=== PATIENT | male | born 1965 | race Two or more races ===

== ENCOUNTER 2020-02-09 22:16 | Inpatient (IN) | payer MEDICARE, MEDICAID ==
[~2020-02-09] VITALS: Ht 162.6 cm; Wt 71.1 kg
[2020-02-09] MEDS ORDERED: PHOSLOC PO (22:50)
[2020-02-09] MEDS ORDERED: FOLI0.8T2 PO (22:50)
[2020-02-09] MEDS ORDERED: RISP1TAB27 PO (22:50)
[2020-02-09] MEDS ORDERED: HYDR-2924 PO (22:50)
[2020-02-09] MEDS ORDERED: INSU100V SQ (22:50)
[2020-02-09] MEDS ORDERED: ATOR40TA28 PO (22:50)
[2020-02-09] MEDS ORDERED: B CO1CAP6 PO (22:50)
[2020-02-09] MEDS ORDERED: PROP40TA7 PO (22:50)
[2020-02-09] MEDS ORDERED: ASPI-728 PO (22:50)
[2020-02-09] MEDS ORDERED: LISI-662 PO (22:50)
[2020-02-09] MEDS ORDERED: DOXA2TAB PO (22:50)
[2020-02-09] MEDS ORDERED: INSLAN SQ (22:50)
[2020-02-09] MEDS ORDERED: AMLO-258 PO (22:50)
[2020-02-09] MEDS ORDERED: OMEP20 PO (22:50)
[2020-02-09 22:57] LABS: ABG METHEMOGLOBIN 0.3 % (0.0-1.5); SOURCE, BLOOD GAS ARTERIAL; TEMPERATURE, FAHRENHEIT, BG 98.6 FAHREN (96.0-98.6)
[2020-02-09 23:00] LABS: ABG A-A DIFF O2 62.5 mmHg (10-20.0); ABG BASE EXCESS 11.3 mmol/L (-2.0-3.0); ABG HCO3 34.1 mmol/L (22.0-26.0); ABG OXYGEN SATURATION 99.8 % (95.0-98.0); ABG OXYHEMOGLOBIN 97.5 % (94.0-100.0); ABG PCO2 40 mmHg (35-45); ABG PH 7.546 (7.35-7.450); PO2, ARTERIAL BG 176.9 mmHg (84.0-92.0)
[2020-02-09 23:01] LABS: SITE, BLOOD GAS RT BRACHIAL
[2020-02-09 23:02] LABS: O2 DEVICE,BLOOD GAS CANNULA (ROOM AIR)
[2020-02-09] MEDS ORDERED: CefTRIAXone 1 GM/DEXTROSE 50 ML IV ONE (23:30)
[2020-02-09] MEDS ORDERED: SODIUM CHLORIDE 0.9% 1,000 ML IV ONE (23:30)
[2020-02-09] MEDS: OXYGEN THERAPY IH SCH (23:42)
[2020-02-10] VITALS (19 sets, daily range): BP systolic 113–189; BP diastolic 42–69
[2020-02-10 00:04] LABS: BASOPHILS % (AUTO) 0.5 % (0.0-2.0); EOSINOPHILS % (AUTO) 0.5 % (1.0-6.0); LYMPHOCYTES # (AUTO) 0.2 K/uL (1.0-4.8); LYMPHOCYTES % (AUTO) 12.7 % (22.0-44.0); MEAN CORPUSCULAR HEMOGLOBIN 33.3 pg (26.0-34.0); MEAN CORPUSCULAR VOLUME 95 fL (80-100); MONOCYTES # (AUTO) 0.1 K/uL (0.1-1.0); MONOCYTES % (AUTO) 6.1 % (2.0-9.0); NEUTROPHILS # (AUTO) 1.1 K/uL (1.8-7.7); NEUTROPHILS % (AUTO) 80.2 % (40.0-70.0); RED BLOOD CELL COUNT(AUTO) 1.99 MIL/uL (4.50-5.90); RED CELL DISTRIBUTION WIDTH 16.6 % (11.5-14.5)
[2020-02-10 00:09] LABS: CREATININE 4.87 mg/dL (0.60-1.30); POTASSIUM 3.5 mmol/L (3.5-5.1)
[2020-02-10 00:10] LABS: CALCIUM, TOTAL 8.1 mg/dL (8.8-10.5)
[2020-02-10] MEDS ORDERED: ONDANSETRON HCL 4 MG/2 ML VIAL IVP PRN (00:15)
[2020-02-10] MEDS ORDERED: ACETAMINOPHEN 325 MG TABLET PO PRN (00:15)
[2020-02-10] MEDS ORDERED: 0.9% SODIUM CHLORIDE 10 ML SYRINGE IVP PRN (00:15)
[2020-02-10 00:17] LABS: TROPONIN I 0.71 ng/mL (0.00-0.05)
[2020-02-10 00:20] LABS: D-DIMER 5.11 mg/L FEU (0.00-0.50); INR 1.5 (0.9-1.1); PROTHROMBIN TIME 15.4 SEC (9.4-11.6)
[2020-02-10 00:49] LABS: ALBUMIN 2.3 g/dL (3.4-5.0); BILIRUBIN,TOTAL 0.7 mg/dL (0.1-1.0); C-REACTIVE PROTEIN QUANT 10.07 mg/dL (0.00-0.30); MAGNESIUM 1.9 mg/dL (1.80-2.40); TOTAL PROTEIN, SERUM 7.7 g/dL (6.4-8.2)
[2020-02-10 00:58] LABS: HEMOGLOBIN 6.6 g/dL (13.5-17.5)
[2020-02-10 01:33] LABS: PLATELET COUNT (AUTO) 33 K/uL (150-450)
[2020-02-10 02:38] LABS: INFLUENZA TYPE A NEGATIVE FOR TYPE A (NEGATIVE); INFLUENZA TYPE B NEGATIVE FOR TYPE B (NEGATIVE)
[2020-02-10] MEDS ORDERED: DiphenhydrAMINE HCL 25 MG CAPSULE PO ONE (04:30)
[2020-02-10] MEDS ORDERED: ACETAMINOPHEN 500 MG TABLET PO ONE (04:30)
[2020-02-10] MEDS ORDERED: AZITHROMYCIN 500 MG/NS 250 ML IV ONE (04:30)
[2020-02-10] MEDS ORDERED: DEXAMETHASONE SOD PHOS 4 MG/ML 5 ML VIAL IVP ONE (04:30)
[2020-02-10] MEDS: OXYGEN THERAPY IH SCH ×2 (08:44→21:50)
[2020-02-10 09:31] LABS: BASOPHILS % (AUTO) 0.7 % (0.0-2.0); EOSINOPHILS % (AUTO) 0.2 % (1.0-6.0); HEMATOCRIT 25.7 % (41-53); HEMOGLOBIN 8.6 g/dL (13.5-17.5); LYMPHOCYTES # (AUTO) 0.1 K/uL (1.0-4.8); MEAN CORPUSCULAR HEMOGLOBIN 32.1 pg (26.0-34.0); MEAN CORPUSCULAR HGB CONC 33.3 G/dL (31.0-37.0); MEAN CORPUSCULAR VOLUME 96 fL (80-100); MONOCYTES % (AUTO) 2.4 % (2.0-9.0); NEUTROPHILS # (AUTO) 1.5 K/uL (1.8-7.7); PLATELET COUNT (AUTO) 35 K/uL (150-450); RED BLOOD CELL COUNT(AUTO) 2.67 MIL/uL (4.50-5.90); RED CELL DISTRIBUTION WIDTH 17.2 % (11.5-14.5)
[2020-02-10 09:33] LABS: NEUTROPHILS % (AUTO) 88.7 % (40.0-70.0)
[2020-02-10 09:42] LABS: GLUCOMETER DEV NAME(LOC) AHU.; GLUCOSE,POINT OF CARE 123 MG/DL (70-110)
[2020-02-10 10:19] LABS: ALBUMIN 2.4 g/dL (3.4-5.0); BILIRUBIN,TOTAL 0.7 mg/dL (0.1-1.0); C-REACTIVE PROTEIN QUANT 11.93 mg/dL (0.00-0.30); CALCIUM, TOTAL 8.1 mg/dL (8.8-10.5); CREATININE 5.8 mg/dL (0.60-1.30); POTASSIUM 4.2 mmol/L (3.5-5.1); TOTAL PROTEIN, SERUM 8.1 g/dL (6.4-8.2)
[2020-02-10] MEDS ORDERED: [UNRECOGNIZED DRUG - OTHER] PO SCH (10:45)
[2020-02-10] MEDS: CALCIUM ACETATE 667 MG CAPSULE PO SCH (11:29)
[2020-02-10] MEDS: PROPRANOLOL HCL 40 MG TABLET PO SCH ×2 (11:29→22:07)
[2020-02-10] MEDS: AmLODIPine BESYLATE 10 MG TABLET PO SCH (11:29)
[2020-02-10] MEDS: OMEPRAZOLE 20 MG CAPSULE PO SCH (11:30)
[2020-02-10] MEDS: ASPIRIN 81 MG CHEWABLE TABLET PO SCH (11:30)
[2020-02-10] MEDS: VITAMIN B COMP/VIT C/FOLIC ACID CAPSULE PO SCH (11:30)
[2020-02-10] MEDS: RisperiDONE 1 MG TABLET PO SCH ×2 (11:31→22:08)
[2020-02-10] MEDS: LISINOPRIL 20 MG TABLET PO SCH ×2 (11:31→22:08)
[2020-02-10] MEDS: ATORVASTATIN CALCIUM 40 MG TABLET PO SCH (11:33)
[2020-02-10] MEDS: DOXAZOSIN MESYLATE 2 MG TABLET PO SCH (12:36)
[2020-02-10] MEDS: HydrALAZINE HCL 50 MG TABLET PO SCH (12:36)
[2020-02-10 12:46] LABS: GLUCOMETER DEV NAME(LOC) AHU.; GLUCOSE,POINT OF CARE 223 MG/DL (70-110)
[2020-02-10] MEDS ORDERED: DEXTROSE 50%-WATER 25 GM/50 ML SYRINGE IVP PRN (16:00)
[2020-02-10 16:01] LABS: ABG A-A DIFF O2 67.7 mmHg (10-20.0); ABG BASE EXCESS 2.9 mmol/L (-2.0-3.0); ABG CARBOXYHEMOGLOBIN 0.6 % (0.0-1.5); ABG HCO3 26.9 mmol/L (22.0-26.0); ABG METHEMOGLOBIN 0.3 % (0.0-1.5); ABG OXYGEN CONTENT 16.4 mL/dL (15.0-23.0); ABG OXYGEN SATURATION 95.3 % (95.0-98.0); ABG OXYHEMOGLOBIN 94.4 % (94.0-100.0); ABG PCO2 39 mmHg (35-45); ABG PH 7.459 (7.35-7.450); ABG TOTAL HEMOGLOBIN 12.3 G/dL (12.0-18.0); PO2, ARTERIAL BG 86.5 mmHg (84.0-92.0); SITE, BLOOD GAS RT RADIAL; SOURCE, BLOOD GAS ARTERIAL; TEMPERATURE, FAHRENHEIT, BG 98.6 FAHREN (96.0-98.6)
[2020-02-10 16:02] LABS: O2 DEVICE,BLOOD GAS CANNULA (ROOM AIR)
[2020-02-10 18:05] LABS: GLUCOMETER DEV NAME(LOC) AHU.; GLUCOSE,POINT OF CARE 232 MG/DL (70-110)
[2020-02-10] MEDS: INSULIN LISPRO 100 UNITS/ML SQ PRN (18:40)
[2020-02-10] MEDS ORDERED: VITAMIN B COMP/VIT C/FOLIC ACID CAPSULE PO SCH (19:15)
[2020-02-10 19:59] LABS: ABG A-A DIFF O2 45.2 mmHg (10-20.0); ABG BASE EXCESS 3.8 mmol/L (-2.0-3.0); ABG CARBOXYHEMOGLOBIN 0.3 % (0.0-1.5); ABG HCO3 27.6 mmol/L (22.0-26.0); ABG METHEMOGLOBIN 0.3 % (0.0-1.5); ABG OXYGEN CONTENT 11.7 mL/dL (15.0-23.0); ABG OXYGEN SATURATION 88.8 % (95.0-98.0); ABG OXYHEMOGLOBIN 88.3 % (94.0-100.0); ABG PCO2 38 mmHg (35-45); ABG PH 7.473 (7.35-7.450); ABG TOTAL HEMOGLOBIN 9.4 G/dL (12.0-18.0); PO2, ARTERIAL BG 58.7 mmHg (84.0-92.0); SOURCE, BLOOD GAS ARTERIAL; TEMPERATURE, FAHRENHEIT, BG 98.6 FAHREN (96.0-98.6)
[2020-02-10 20:00] LABS: O2 DEVICE,BLOOD GAS ROOM AIR (ROOM AIR); SITE, BLOOD GAS RT RADIAL
[2020-02-10] MEDS: INSULIN GLARGINE,HUM.REC.ANLOG 100 UNITS/ML SQ SCH (22:08)
[2020-02-10 22:11] LABS: GLUCOMETER DEV NAME(LOC) AHU.; GLUCOSE,POINT OF CARE 203 MG/DL (70-110)
[2020-02-11] VITALS (7 sets, daily range): BP systolic 116–145; BP diastolic 56–71
[2020-02-11 05:30] LABS: BASOPHILS % (AUTO) 0.2 % (0.0-2.0); EOSINOPHILS % (AUTO) 0 % (1.0-6.0); HEMATOCRIT 26.7 % (41-53); HEMOGLOBIN 9.3 g/dL (13.5-17.5); LYMPHOCYTES # (AUTO) 0.2 K/uL (1.0-4.8); LYMPHOCYTES % (AUTO) 8.6 % (22.0-44.0); MEAN CORPUSCULAR HEMOGLOBIN 33.3 pg (26.0-34.0); MEAN CORPUSCULAR HGB CONC 34.9 G/dL (31.0-37.0); MEAN CORPUSCULAR VOLUME 95 fL (80-100); MONOCYTES # (AUTO) 0.1 K/uL (0.1-1.0); MONOCYTES % (AUTO) 4.3 % (2.0-9.0); PLATELET COUNT (AUTO) 38 K/uL (150-450); RED BLOOD CELL COUNT(AUTO) 2.81 MIL/uL (4.50-5.90); RED CELL DISTRIBUTION WIDTH 16.9 % (11.5-14.5)
[2020-02-11 06:04] LABS: NEUTROPHILS % (AUTO) 86.9 % (40.0-70.0)
[2020-02-11 06:13] LABS: BILIRUBIN,TOTAL 0.6 mg/dL (0.1-1.0); C-REACTIVE PROTEIN QUANT 8.55 mg/dL (0.00-0.30); CALCIUM, TOTAL 7.7 mg/dL (8.8-10.5); CREATININE 6.88 mg/dL (0.60-1.30); MAGNESIUM 2.2 mg/dL (1.80-2.40); POTASSIUM 4.3 mmol/L (3.5-5.1); TOTAL PROTEIN, SERUM 7.1 g/dL (6.4-8.2)
[2020-02-11 07:01] LABS: GLUCOMETER DEV NAME(LOC) 4E.2; GLUCOSE,POINT OF CARE 138 MG/DL (70-110)
[2020-02-11] MEDS: OXYGEN THERAPY IH SCH ×2 (08:00→14:52)
[2020-02-11] MEDS: CALCIUM ACETATE 667 MG CAPSULE PO SCH ×3 (08:00→18:20)
[2020-02-11 10:45] LABS: ABG A-A DIFF O2 96.7 mmHg (10-20.0); ABG BASE EXCESS 0.3 mmol/L (-2.0-3.0); ABG CARBOXYHEMOGLOBIN 1.1 % (0.0-1.5); ABG HCO3 25.2 mmol/L (22.0-26.0); ABG METHEMOGLOBIN 0.3 % (0.0-1.5); ABG OXYGEN CONTENT 13.4 mL/dL (15.0-23.0); ABG OXYGEN SATURATION 92.5 % (95.0-98.0); ABG OXYHEMOGLOBIN 91.2 % (94.0-100.0); ABG PCO2 29 mmHg (35-45); ABG PH 7.515 (7.35-7.450); ABG TOTAL HEMOGLOBIN 10.4 G/dL (12.0-18.0); PO2, ARTERIAL BG 68.3 mmHg (84.0-92.0); SITE, BLOOD GAS RT RADIAL; SOURCE, BLOOD GAS ARTERIAL; TEMPERATURE, FAHRENHEIT, BG 98.6 FAHREN (96.0-98.6)
[2020-02-11 10:46] LABS: O2 DEVICE,BLOOD GAS CANNULA (ROOM AIR)
[2020-02-11] MEDS ORDERED: ACETAMINOPHEN 325 MG TABLET PO ONE (12:30)
[2020-02-11] MEDS: ASPIRIN 81 MG CHEWABLE TABLET PO SCH (14:18)
[2020-02-11] MEDS: AmLODIPine BESYLATE 10 MG TABLET PO SCH (14:19)
[2020-02-11] MEDS: LISINOPRIL 20 MG TABLET PO SCH ×2 (14:19→20:56)
[2020-02-11] MEDS: EPOETIN ALFA 10,000 UNITS/ML VIAL SQ SCH (14:19)
[2020-02-11] MEDS: ATORVASTATIN CALCIUM 40 MG TABLET PO SCH (14:19)
[2020-02-11] MEDS: INSULIN LISPRO 100 UNITS/ML SQ PRN ×2 (14:21→21:10)
[2020-02-11] MEDS: PROPRANOLOL HCL 40 MG TABLET PO SCH ×2 (14:50→15:58)
[2020-02-11] MEDS: VITAMIN B COMP/VIT C/FOLIC ACID CAPSULE PO SCH (14:50)
[2020-02-11] MEDS: DOXAZOSIN MESYLATE 2 MG TABLET PO SCH (14:51)
[2020-02-11] MEDS: HydrALAZINE HCL 50 MG TABLET PO SCH ×2 (14:51→14:58)
[2020-02-11] MEDS: RisperiDONE 1 MG TABLET PO SCH ×2 (14:51→20:58)
[2020-02-11] MEDS: OMEPRAZOLE 20 MG CAPSULE PO SCH (14:53)
[2020-02-11 17:27] LABS: GLUCOMETER DEV NAME(LOC) 5N.3; GLUCOSE,POINT OF CARE 100 MG/DL (70-110)
[2020-02-11] MEDS: ACETAMINOPHEN 325 MG TABLET PO PRN ×2 (18:20→22:38)
[2020-02-11] MEDS: INSULIN GLARGINE,HUM.REC.ANLOG 100 UNITS/ML SQ SCH (21:13)
[2020-02-12 03:30] VITALS: BP 149/52
[2020-02-12] MEDS: ACETAMINOPHEN 325 MG TABLET PO PRN (06:16)
[2020-02-12 06:48] LABS: BASOPHILS % (AUTO) 0.3 % (0.0-2.0); EOSINOPHILS % (AUTO) 0.3 % (1.0-6.0); HEMATOCRIT 24.5 % (41-53); HEMOGLOBIN 8.3 g/dL (13.5-17.5); LYMPHOCYTES # (AUTO) 0.2 K/uL (1.0-4.8); LYMPHOCYTES % (AUTO) 11.6 % (22.0-44.0); MEAN CORPUSCULAR HGB CONC 33.9 G/dL (31.0-37.0); MEAN CORPUSCULAR VOLUME 95 fL (80-100); MONOCYTES # (AUTO) 0.1 K/uL (0.1-1.0); NEUTROPHILS # (AUTO) 1.8 K/uL (1.8-7.7); NEUTROPHILS % (AUTO) 82.8 % (40.0-70.0); PLATELET COUNT (AUTO) 39 K/uL (150-450); RED CELL DISTRIBUTION WIDTH 16.6 % (11.5-14.5)
[2020-02-12 07:13] LABS: GLUCOMETER DEV NAME(LOC) 5N.3; GLUCOSE,POINT OF CARE 97 MG/DL (70-110)
[2020-02-12 07:13] LABS: GLUCOMETER DEV NAME(LOC) 5N.3; GLUCOSE,POINT OF CARE 167 MG/DL (70-110)
[2020-02-12 07:18] VITALS: BP 137/67
[2020-02-12 08:04] LABS: BILIRUBIN,TOTAL 0.6 mg/dL (0.1-1.0); C-REACTIVE PROTEIN QUANT 7.49 mg/dL (0.00-0.30); CREATININE 5.16 mg/dL (0.60-1.30); TOTAL PROTEIN, SERUM 7.2 g/dL (6.4-8.2)
[2020-02-12 08:37] VITALS: BP 118/64
[2020-02-12] MEDS: AmLODIPine BESYLATE 10 MG TABLET PO SCH (08:39)
[2020-02-12] MEDS: LISINOPRIL 20 MG TABLET PO SCH ×2 (08:39→21:51)
[2020-02-12] MEDS: VITAMIN B COMP/VIT C/FOLIC ACID CAPSULE PO SCH (08:42)
[2020-02-12] MEDS: ATORVASTATIN CALCIUM 40 MG TABLET PO SCH (08:42)
[2020-02-12] MEDS: ASPIRIN 81 MG CHEWABLE TABLET PO SCH (08:42)
[2020-02-12] MEDS: DOXAZOSIN MESYLATE 2 MG TABLET PO SCH (08:42)
[2020-02-12] MEDS: CALCIUM ACETATE 667 MG CAPSULE PO SCH ×2 (08:42→18:00)
[2020-02-12] MEDS: OXYGEN THERAPY IH SCH ×2 (08:42→22:17)
[2020-02-12] MEDS: RisperiDONE 1 MG TABLET PO SCH ×3 (08:43→21:51)
[2020-02-12] MEDS: OMEPRAZOLE 20 MG CAPSULE PO SCH (08:43)
[2020-02-12 11:11] VITALS: BP 130/65
[2020-02-12] MEDS: PROPRANOLOL HCL 40 MG TABLET PO SCH ×2 (11:23→21:51)
[2020-02-12 15:23] VITALS: BP 119/65
[2020-02-12 16:43] LABS: GLUCOMETER DEV NAME(LOC) 5S.2A; GLUCOSE,POINT OF CARE 137 MG/DL (70-110)
[2020-02-12] MEDS: INSULIN LISPRO 100 UNITS/ML SQ PRN ×2 (18:28→22:14)
[2020-02-12 21:14] VITALS: BP 137/82
[2020-02-12] MEDS: INSULIN GLARGINE,HUM.REC.ANLOG 100 UNITS/ML SQ SCH (22:14)
[2020-02-13 04:14] VITALS: BP 134/69
[2020-02-13] MEDS: ACETAMINOPHEN 325 MG TABLET PO PRN (05:48)
[2020-02-13 06:49] LABS: GLUCOMETER DEV NAME(LOC) 5N.3; GLUCOSE,POINT OF CARE 176 MG/DL (70-110)
[2020-02-13 06:49] LABS: GLUCOMETER DEV NAME(LOC) 5N.3; GLUCOSE,POINT OF CARE 101 MG/DL (70-110)
[2020-02-13 07:18] LABS: BASOPHILS % (AUTO) 0.2 % (0.0-2.0); EOSINOPHILS % (AUTO) 1.1 % (1.0-6.0); HEMATOCRIT 22.8 % (41-53); HEMOGLOBIN 7.7 g/dL (13.5-17.5); LYMPHOCYTES # (AUTO) 0.3 K/uL (1.0-4.8); LYMPHOCYTES % (AUTO) 12.7 % (22.0-44.0); MEAN CORPUSCULAR HEMOGLOBIN 31.9 pg (26.0-34.0); MEAN CORPUSCULAR HGB CONC 33.6 G/dL (31.0-37.0); MEAN CORPUSCULAR VOLUME 95 fL (80-100); MONOCYTES # (AUTO) 0.1 K/uL (0.1-1.0); MONOCYTES % (AUTO) 4.3 % (2.0-9.0); NEUTROPHILS # (AUTO) 1.8 K/uL (1.8-7.7); NEUTROPHILS % (AUTO) 81.7 % (40.0-70.0); RED BLOOD CELL COUNT(AUTO) 2.41 MIL/uL (4.50-5.90); RED CELL DISTRIBUTION WIDTH 16.4 % (11.5-14.5)
[2020-02-13] MEDS: OXYGEN THERAPY IH SCH ×2 (08:00→21:17)
[2020-02-13 08:11] LABS: ALBUMIN 2.1 g/dL (3.4-5.0); BILIRUBIN,TOTAL 0.7 mg/dL (0.1-1.0); C-REACTIVE PROTEIN QUANT 7.13 mg/dL (0.00-0.30); CREATININE 7.45 mg/dL (0.60-1.30); POTASSIUM 4.2 mmol/L (3.5-5.1); TOTAL PROTEIN, SERUM 7.5 g/dL (6.4-8.2)
[2020-02-13] MEDS: OMEPRAZOLE 20 MG CAPSULE PO SCH (08:19)
[2020-02-13] MEDS: CALCIUM ACETATE 667 MG CAPSULE PO SCH ×2 (08:19→17:17)
[2020-02-13 08:20] VITALS: BP 131/74
[2020-02-13] MEDS: VITAMIN B COMP/VIT C/FOLIC ACID CAPSULE PO SCH (08:20)
[2020-02-13] MEDS: EPOETIN ALFA 10,000 UNITS/ML VIAL SQ SCH (08:25)
[2020-02-13] MEDS: LISINOPRIL 20 MG TABLET PO SCH ×2 (09:00→21:17)
[2020-02-13] MEDS: HydrALAZINE HCL 50 MG TABLET PO SCH (09:00)
[2020-02-13] MEDS: RisperiDONE 1 MG TABLET PO SCH ×2 (09:00→21:00)
[2020-02-13] MEDS: PROPRANOLOL HCL 40 MG TABLET PO SCH ×2 (09:00→21:17)
[2020-02-13 09:01] LABS: PLATELET COUNT (AUTO) 35 K/uL (150-450)
[2020-02-13 12:03] VITALS: BP 128/78
[2020-02-13] MEDS: INSULIN LISPRO 100 UNITS/ML SQ PRN ×3 (12:38→21:21)
[2020-02-13 14:55] VITALS: BP 132/69
[2020-02-13 16:58] VITALS: BP 140/67
[2020-02-13] MEDS: DOXAZOSIN MESYLATE 2 MG TABLET PO SCH (17:16)
[2020-02-13] MEDS: ATORVASTATIN CALCIUM 40 MG TABLET PO SCH (17:16)
[2020-02-13] MEDS: AmLODIPine BESYLATE 10 MG TABLET PO SCH (17:18)
[2020-02-13] MEDS: ASPIRIN 81 MG CHEWABLE TABLET PO SCH (17:19)
[2020-02-13 17:47] LABS: GLUCOMETER DEV NAME(LOC) 5S.2A; GLUCOSE,POINT OF CARE 166 MG/DL (70-110)
[2020-02-13 17:47] LABS: GLUCOMETER DEV NAME(LOC) 5S.2A; GLUCOSE,POINT OF CARE 198 MG/DL (70-110)
[2020-02-13 20:31] VITALS: BP 142/70
[2020-02-13] MEDS: INSULIN GLARGINE,HUM.REC.ANLOG 100 UNITS/ML SQ SCH (21:20)
[2020-02-14 00:14] VITALS: BP 120/60
[2020-02-14 04:00] VITALS: BP 139/70
[2020-02-14 04:01] LABS: GLUCOMETER DEV NAME(LOC) 5S.2A; GLUCOSE,POINT OF CARE 151 MG/DL (70-110)
[2020-02-14 04:01] LABS: GLUCOMETER DEV NAME(LOC) 5N.3; GLUCOSE,POINT OF CARE 145 MG/DL (70-110)
[2020-02-14 07:23] LABS: BASOPHILS % (AUTO) 0.4 % (0.0-2.0); EOSINOPHILS % (AUTO) 1.9 % (1.0-6.0); HEMATOCRIT 23.4 % (41-53); HEMOGLOBIN 7.7 g/dL (13.5-17.5); LYMPHOCYTES # (AUTO) 0.3 K/uL (1.0-4.8); LYMPHOCYTES % (AUTO) 10.2 % (22.0-44.0); MEAN CORPUSCULAR HEMOGLOBIN 31.5 pg (26.0-34.0); MEAN CORPUSCULAR VOLUME 96 fL (80-100); MONOCYTES # (AUTO) 0.2 K/uL (0.1-1.0); MONOCYTES % (AUTO) 5.5 % (2.0-9.0); NEUTROPHILS # (AUTO) 2.3 K/uL (1.8-7.7); RED BLOOD CELL COUNT(AUTO) 2.45 MIL/uL (4.50-5.90); RED CELL DISTRIBUTION WIDTH 16.3 % (11.5-14.5)
[2020-02-14 08:00] LABS: ALBUMIN 2.1 g/dL (3.4-5.0); BILIRUBIN,TOTAL 0.7 mg/dL (0.1-1.0); C-REACTIVE PROTEIN QUANT 7.53 mg/dL (0.00-0.30); CALCIUM, TOTAL 8.1 mg/dL (8.8-10.5); CREATININE 5.53 mg/dL (0.60-1.30); TOTAL PROTEIN, SERUM 7.6 g/dL (6.4-8.2)
[2020-02-14 08:13] VITALS: BP 140/65
[2020-02-14] MEDS: CALCIUM ACETATE 667 MG CAPSULE PO SCH ×2 (08:21→18:20)
[2020-02-14] MEDS: ATORVASTATIN CALCIUM 40 MG TABLET PO SCH (08:21)
[2020-02-14] MEDS: VITAMIN B COMP/VIT C/FOLIC ACID CAPSULE PO SCH (08:21)
[2020-02-14] MEDS: OMEPRAZOLE 20 MG CAPSULE PO SCH (08:22)
[2020-02-14] MEDS: ASPIRIN 81 MG CHEWABLE TABLET PO SCH (08:22)
[2020-02-14] MEDS: AmLODIPine BESYLATE 10 MG TABLET PO SCH (08:23)
[2020-02-14] MEDS: LISINOPRIL 20 MG TABLET PO SCH ×2 (08:23→20:46)
[2020-02-14] MEDS: PROPRANOLOL HCL 40 MG TABLET PO SCH ×2 (08:24→20:46)
[2020-02-14] MEDS: DOXAZOSIN MESYLATE 2 MG TABLET PO SCH (08:24)
[2020-02-14] MEDS: HydrALAZINE HCL 50 MG TABLET PO SCH (08:24)
[2020-02-14] MEDS: RisperiDONE 1 MG TABLET PO SCH ×2 (08:38→21:00)
[2020-02-14] MEDS: OXYGEN THERAPY IH SCH ×2 (08:38→20:00)
[2020-02-14 08:48] LABS: PLATELET COUNT (AUTO) 37 K/uL (150-450)
[2020-02-14 08:56] LABS: ERYTHROCYTE SEDIMENTATION RATE 130 MM/HR (0-15)
[2020-02-14 11:25] VITALS: BP 136/65
[2020-02-14] MEDS: INSULIN LISPRO 100 UNITS/ML SQ PRN ×3 (11:40→20:50)
[2020-02-14] MEDS: ACETAMINOPHEN 325 MG TABLET PO PRN ×2 (11:53→20:46)
[2020-02-14 15:08] VITALS: BP 122/60
[2020-02-14] MEDS ORDERED: PHENYLEPHRINE/COCOA BUTTER RECTAL SUPPOSITORY PR SCH (15:30)
[2020-02-14] MEDS: PHENYLEPHRINE/COCOA BUTTER RECTAL SUPPOSITORY PR SCH ×2 (16:49→20:47)
[2020-02-14] MEDS: INSULIN GLARGINE,HUM.REC.ANLOG 100 UNITS/ML SQ SCH (20:49)
[2020-02-14 21:27] LABS: GLUCOMETER DEV NAME(LOC) 5S.2A; GLUCOSE,POINT OF CARE 84 MG/DL (70-110)
[2020-02-14 21:27] LABS: GLUCOMETER DEV NAME(LOC) 5S.2A; GLUCOSE,POINT OF CARE 209 MG/DL (70-110)
[2020-02-14 21:28] LABS: GLUCOMETER DEV NAME(LOC) 5S.2A; GLUCOSE,POINT OF CARE 212 MG/DL (70-110)
[2020-02-15] VITALS (7 sets, daily range): BP systolic 131–158; BP diastolic 57–68
[2020-02-15] MEDS: ACETAMINOPHEN 325 MG TABLET PO PRN ×4 (01:40→20:41)
[2020-02-15] MEDS: INSULIN LISPRO 100 UNITS/ML SQ PRN ×3 (06:11→18:00)
[2020-02-15 07:27] LABS: BASOPHILS % (AUTO) 0.4 % (0.0-2.0); EOSINOPHILS % (AUTO) 3.2 % (1.0-6.0); HEMOGLOBIN 7.5 g/dL (13.5-17.5); LYMPHOCYTES # (AUTO) 0.3 K/uL (1.0-4.8); LYMPHOCYTES % (AUTO) 9.4 % (22.0-44.0); MEAN CORPUSCULAR HEMOGLOBIN 30.7 pg (26.0-34.0); MEAN CORPUSCULAR HGB CONC 32.6 G/dL (31.0-37.0); MEAN CORPUSCULAR VOLUME 94 fL (80-100); MONOCYTES # (AUTO) 0.2 K/uL (0.1-1.0); MONOCYTES % (AUTO) 6.5 % (2.0-9.0); NEUTROPHILS # (AUTO) 2.4 K/uL (1.8-7.7); NEUTROPHILS % (AUTO) 80.5 % (40.0-70.0); PLATELET COUNT (AUTO) 45 K/uL (150-450); RED BLOOD CELL COUNT(AUTO) 2.44 MIL/uL (4.50-5.90); RED CELL DISTRIBUTION WIDTH 16.3 % (11.5-14.5)
[2020-02-15] MEDS: OXYGEN THERAPY IH SCH ×2 (08:00→20:42)
[2020-02-15 08:10] LABS: BILIRUBIN,TOTAL 0.7 mg/dL (0.1-1.0); C-REACTIVE PROTEIN QUANT 8.73 mg/dL (0.00-0.30); CREATININE 7.82 mg/dL (0.60-1.30); POTASSIUM 4.1 mmol/L (3.5-5.1); TOTAL PROTEIN, SERUM 7.2 g/dL (6.4-8.2)
[2020-02-15] MEDS: PHENYLEPHRINE/COCOA BUTTER RECTAL SUPPOSITORY PR SCH ×3 (08:10→20:42)
[2020-02-15] MEDS: VITAMIN B COMP/VIT C/FOLIC ACID CAPSULE PO SCH (08:11)
[2020-02-15] MEDS: OMEPRAZOLE 20 MG CAPSULE PO SCH (08:11)
[2020-02-15] MEDS: CALCIUM ACETATE 667 MG CAPSULE PO SCH ×2 (08:11→18:00)
[2020-02-15] MEDS: ATORVASTATIN CALCIUM 40 MG TABLET PO SCH (08:12)
[2020-02-15] MEDS: ASPIRIN 81 MG CHEWABLE TABLET PO SCH (08:12)
[2020-02-15] MEDS: LISINOPRIL 20 MG TABLET PO SCH ×2 (08:18→20:42)
[2020-02-15] MEDS: AmLODIPine BESYLATE 10 MG TABLET PO SCH (08:18)
[2020-02-15] MEDS: RisperiDONE 1 MG TABLET PO SCH ×2 (08:18→20:42)
[2020-02-15] MEDS: DOXAZOSIN MESYLATE 2 MG TABLET PO SCH (08:18)
[2020-02-15] MEDS: PROPRANOLOL HCL 40 MG TABLET PO SCH ×2 (08:18→20:42)
[2020-02-15] MEDS: HydrALAZINE HCL 50 MG TABLET PO SCH (08:19)
[2020-02-15] MEDS: HYDROCODONE/ACETAMINOPHEN 5-325 MG TABLET PO PRN (18:00)
[2020-02-15] MEDS: INSULIN GLARGINE,HUM.REC.ANLOG 100 UNITS/ML SQ SCH (20:44)
[2020-02-15] MEDS ORDERED: SODIUM CHLORIDE 0.9% 100 ML ONE (21:29)
[2020-02-15 21:46] LABS: GLUCOMETER DEV NAME(LOC) 5N.1; GLUCOSE,POINT OF CARE 178 MG/DL (70-110)
[2020-02-15 21:47] LABS: GLUCOMETER DEV NAME(LOC) 5S.2A; GLUCOSE,POINT OF CARE 211 MG/DL (70-110)
[2020-02-15 21:47] LABS: GLUCOMETER DEV NAME(LOC) 5S.2A; GLUCOSE,POINT OF CARE 174 MG/DL (70-110)
[2020-02-15 21:47] LABS: GLUCOMETER DEV NAME(LOC) 5S.2A; GLUCOSE,POINT OF CARE 164 MG/DL (70-110)
[2020-02-16] VITALS (9 sets, daily range): BP systolic 104–158; BP diastolic 50–81
[2020-02-16] MEDS ORDERED: SODIUM CHLORIDE 0.9% 100 ML ONE (02:21)
[2020-02-16] MEDS: ACETAMINOPHEN 325 MG TABLET PO PRN (02:54)
[2020-02-16] MEDS: INSULIN LISPRO 100 UNITS/ML SQ PRN ×3 (06:35→21:20)
[2020-02-16 06:52] LABS: GLUCOMETER DEV NAME(LOC) 5S.1; GLUCOSE,POINT OF CARE 184 MG/DL (70-110)
[2020-02-16 08:10] LABS: GLUCOMETER DEV NAME(LOC) 5N.3; GLUCOSE,POINT OF CARE 153 MG/DL (70-110)
[2020-02-16 08:24] LABS: BASOPHILS % (AUTO) 0.5 % (0.0-2.0); EOSINOPHILS % (AUTO) 2.3 % (1.0-6.0); HEMATOCRIT 21.7 % (41-53); HEMOGLOBIN 7.1 g/dL (13.5-17.5); LYMPHOCYTES # (AUTO) 0.3 K/uL (1.0-4.8); LYMPHOCYTES % (AUTO) 6.8 % (22.0-44.0); MEAN CORPUSCULAR HEMOGLOBIN 31.2 pg (26.0-34.0); MEAN CORPUSCULAR HGB CONC 32.8 G/dL (31.0-37.0); MEAN CORPUSCULAR VOLUME 95 fL (80-100); MONOCYTES # (AUTO) 0.2 K/uL (0.1-1.0); MONOCYTES % (AUTO) 6.6 % (2.0-9.0); NEUTROPHILS # (AUTO) 3.2 K/uL (1.8-7.7); NEUTROPHILS % (AUTO) 83.8 % (40.0-70.0); PLATELET COUNT (AUTO) 56 K/uL (150-450); RED BLOOD CELL COUNT(AUTO) 2.28 MIL/uL (4.50-5.90); RED CELL DISTRIBUTION WIDTH 16.6 % (11.5-14.5)
[2020-02-16 08:34] LABS: BILIRUBIN,TOTAL 0.8 mg/dL (0.1-1.0); C-REACTIVE PROTEIN QUANT 13.67 mg/dL (0.00-0.30); CALCIUM, TOTAL 8.2 mg/dL (8.8-10.5); CREATININE 9.28 mg/dL (0.60-1.30); POTASSIUM 4.4 mmol/L (3.5-5.1); TOTAL PROTEIN, SERUM 7.5 g/dL (6.4-8.2)
[2020-02-16] MEDS: ATORVASTATIN CALCIUM 40 MG TABLET PO SCH (09:16)
[2020-02-16] MEDS: OMEPRAZOLE 20 MG CAPSULE PO SCH (09:16)
[2020-02-16] MEDS: LISINOPRIL 20 MG TABLET PO SCH ×2 (09:16→21:11)
[2020-02-16] MEDS: PHENYLEPHRINE/COCOA BUTTER RECTAL SUPPOSITORY PR SCH ×3 (09:16→21:10)
[2020-02-16] MEDS: VITAMIN B COMP/VIT C/FOLIC ACID CAPSULE PO SCH (09:16)
[2020-02-16] MEDS: PROPRANOLOL HCL 40 MG TABLET PO SCH ×2 (09:17→21:10)
[2020-02-16] MEDS: RisperiDONE 1 MG TABLET PO SCH ×2 (09:17→21:11)
[2020-02-16] MEDS: AmLODIPine BESYLATE 10 MG TABLET PO SCH (09:17)
[2020-02-16] MEDS: ASPIRIN 81 MG CHEWABLE TABLET PO SCH (09:17)
[2020-02-16] MEDS: HydrALAZINE HCL 50 MG TABLET PO SCH (09:17)
[2020-02-16] MEDS: CALCIUM ACETATE 667 MG CAPSULE PO SCH ×2 (09:19→18:00)
[2020-02-16] MEDS: OXYGEN THERAPY IH SCH (09:19)
[2020-02-16] MEDS: EPOETIN ALFA 10,000 UNITS/ML VIAL SQ SCH (09:20)
[2020-02-16] MEDS: DOXAZOSIN MESYLATE 2 MG TABLET PO SCH (09:20)
[2020-02-16] MEDS: HYDROCODONE/ACETAMINOPHEN 5-325 MG TABLET PO PRN (11:07)
[2020-02-16 15:04] LABS: PLATELET MORPHOLOGY COMMENT LARGE PLTS PRESENT
[2020-02-16] MEDS: MetroNIDAZOLE 500 MG TABLET PO SCH ×2 (16:42→23:20)
[2020-02-16 20:28] LABS: GLUCOMETER DEV NAME(LOC) 5N.1; GLUCOSE,POINT OF CARE 232 MG/DL (70-110)
[2020-02-16 20:28] LABS: GLUCOMETER DEV NAME(LOC) 5N.1; GLUCOSE,POINT OF CARE 113 MG/DL (70-110)
[2020-02-16] MEDS: INSULIN GLARGINE,HUM.REC.ANLOG 100 UNITS/ML SQ SCH (21:19)
[2020-02-16 22:16] LABS: GLUCOMETER DEV NAME(LOC) 5N.3; GLUCOSE,POINT OF CARE 145 MG/DL (70-110)
[2020-02-17] VITALS (9 sets, daily range): BP systolic 103–150; BP diastolic 51–69
[2020-02-17] MEDS: ACETAMINOPHEN 325 MG TABLET PO PRN ×2 (01:01→13:40)
[2020-02-17] MEDS: HYDROCODONE/ACETAMINOPHEN 5-325 MG TABLET PO PRN ×2 (05:22→16:20)
[2020-02-17 05:47] LABS: GLUCOMETER DEV NAME(LOC) 5N.3; GLUCOSE,POINT OF CARE 63 MG/DL (70-110)
[2020-02-17 06:38] LABS: BILIRUBIN,TOTAL 0.8 mg/dL (0.1-1.0); CALCIUM, TOTAL 8.4 mg/dL (8.8-10.5); CREATININE 6.39 mg/dL (0.60-1.30); POTASSIUM 4.1 mmol/L (3.5-5.1); TOTAL PROTEIN, SERUM 7.7 g/dL (6.4-8.2)
[2020-02-17 07:11] LABS: BASOPHILS % (AUTO) 0.7 % (0.0-2.0); EOSINOPHILS % (AUTO) 1.1 % (1.0-6.0); HEMATOCRIT 21.4 % (41-53); LYMPHOCYTES # (AUTO) 0.2 K/uL (1.0-4.8); LYMPHOCYTES % (AUTO) 6.4 % (22.0-44.0); MEAN CORPUSCULAR HEMOGLOBIN 31.3 pg (26.0-34.0); MEAN CORPUSCULAR HGB CONC 32.8 G/dL (31.0-37.0); MEAN CORPUSCULAR VOLUME 96 fL (80-100); MONOCYTES # (AUTO) 0.3 K/uL (0.1-1.0); MONOCYTES % (AUTO) 7.2 % (2.0-9.0); NEUTROPHILS # (AUTO) 3.2 K/uL (1.8-7.7); NEUTROPHILS % (AUTO) 84.6 % (40.0-70.0); PLATELET COUNT (AUTO) 68 K/uL (150-450); RED BLOOD CELL COUNT(AUTO) 2.24 MIL/uL (4.50-5.90); RED CELL DISTRIBUTION WIDTH 16.9 % (11.5-14.5)
[2020-02-17 07:18] LABS: PLATELET MORPHOLOGY COMMENT LARGE PLTS PRESENT
[2020-02-17] MEDS: OXYGEN THERAPY IH SCH ×2 (08:00→20:00)
[2020-02-17] MEDS: PHENYLEPHRINE/COCOA BUTTER RECTAL SUPPOSITORY PR SCH ×2 (08:05→16:20)
[2020-02-17] MEDS: RisperiDONE 1 MG TABLET PO SCH ×2 (08:14→21:34)
[2020-02-17] MEDS: OMEPRAZOLE 20 MG CAPSULE PO SCH (08:14)
[2020-02-17] MEDS: LISINOPRIL 20 MG TABLET PO SCH ×2 (08:14→21:34)
[2020-02-17] MEDS: MetroNIDAZOLE 500 MG TABLET PO SCH ×2 (08:14→16:19)
[2020-02-17] MEDS: ATORVASTATIN CALCIUM 40 MG TABLET PO SCH (08:14)
[2020-02-17] MEDS: DOXAZOSIN MESYLATE 2 MG TABLET PO SCH (08:14)
[2020-02-17] MEDS: CALCIUM ACETATE 667 MG CAPSULE PO SCH ×2 (08:14→18:17)
[2020-02-17] MEDS: ASPIRIN 81 MG CHEWABLE TABLET PO SCH (08:14)
[2020-02-17] MEDS: PROPRANOLOL HCL 40 MG TABLET PO SCH ×2 (08:14→21:34)
[2020-02-17] MEDS: AmLODIPine BESYLATE 10 MG TABLET PO SCH (08:15)
[2020-02-17] MEDS: VITAMIN B COMP/VIT C/FOLIC ACID CAPSULE PO SCH (08:15)
[2020-02-17] MEDS: HydrALAZINE HCL 50 MG TABLET PO SCH (08:15)
[2020-02-17 08:37] LABS: C-REACTIVE PROTEIN QUANT 20.64 mg/dL (0.00-0.30)
[2020-02-17] MEDS: DEXAMETHASONE SOD PHOS 10 MG/ML VIAL IVP SCH (12:55)
[2020-02-17] MEDS: DIPHENOXYLATE/ATROP 2.5-0.025 MG TABLET PO PRN (12:55)
[2020-02-17] MEDS ORDERED: SODIUM CHLORIDE 0.9% 250 ML IV ONE (17:33)
[2020-02-17] MEDS: INSULIN LISPRO 100 UNITS/ML SQ PRN ×2 (18:18→21:33)
[2020-02-17] MEDS: INSULIN GLARGINE,HUM.REC.ANLOG 100 UNITS/ML SQ SCH (21:33)
[2020-02-18] VITALS (7 sets, daily range): BP systolic 67–127; BP diastolic 50–118
[2020-02-18] MEDS: HYDROCODONE/ACETAMINOPHEN 5-325 MG TABLET PO PRN ×3 (00:48→21:42)
[2020-02-18] MEDS: PHENYLEPHRINE/COCOA BUTTER RECTAL SUPPOSITORY PR SCH ×4 (00:48→21:00)
[2020-02-18] MEDS: DIPHENOXYLATE/ATROP 2.5-0.025 MG TABLET PO PRN ×2 (00:49→08:37)
[2020-02-18] MEDS: MetroNIDAZOLE 500 MG TABLET PO SCH ×4 (00:49→23:48)
[2020-02-18 05:29] LABS: GLUCOMETER DEV NAME(LOC) 5N.1; GLUCOSE,POINT OF CARE 145 MG/DL (70-110)
[2020-02-18 05:29] LABS: GLUCOMETER DEV NAME(LOC) 5N.1; GLUCOSE,POINT OF CARE 290 MG/DL (70-110)
[2020-02-18 05:29] LABS: GLUCOMETER DEV NAME(LOC) 5N.1; GLUCOSE,POINT OF CARE 223 MG/DL (70-110)
[2020-02-18] MEDS: INSULIN LISPRO 100 UNITS/ML SQ PRN ×4 (05:36→21:53)
[2020-02-18 06:23] LABS: ALBUMIN 1.9 g/dL (3.4-5.0); CALCIUM, TOTAL 8.5 mg/dL (8.8-10.5); CREATININE 7.92 mg/dL (0.60-1.30); POTASSIUM 4.7 mmol/L (3.5-5.1)
[2020-02-18 07:02] LABS: BASOPHILS % (AUTO) 0.2 % (0.0-2.0); EOSINOPHILS % (AUTO) 0.1 % (1.0-6.0); HEMATOCRIT 23.8 % (41-53); HEMOGLOBIN 7.8 g/dL (13.5-17.5); LYMPHOCYTES # (AUTO) 0.2 K/uL (1.0-4.8); MEAN CORPUSCULAR HEMOGLOBIN 31.4 pg (26.0-34.0); MEAN CORPUSCULAR HGB CONC 32.6 G/dL (31.0-37.0); MEAN CORPUSCULAR VOLUME 96 fL (80-100); MONOCYTES # (AUTO) 0.1 K/uL (0.1-1.0); MONOCYTES % (AUTO) 3.9 % (2.0-9.0); NEUTROPHILS # (AUTO) 3.1 K/uL (1.8-7.7); RED BLOOD CELL COUNT(AUTO) 2.47 MIL/uL (4.50-5.90); RED CELL DISTRIBUTION WIDTH 16.9 % (11.5-14.5)
[2020-02-18 07:23] LABS: NEUTROPHILS % (AUTO) 90.8 % (40.0-70.0)
[2020-02-18 07:40] LABS: BILIRUBIN,TOTAL 0.7 mg/dL (0.1-1.0); C-REACTIVE PROTEIN QUANT 18.78 mg/dL (0.00-0.30); TOTAL PROTEIN, SERUM 7.2 g/dL (6.4-8.2)
[2020-02-18] MEDS: VITAMIN B COMP/VIT C/FOLIC ACID CAPSULE PO SCH (08:36)
[2020-02-18] MEDS: EPOETIN ALFA 10,000 UNITS/ML 2 ML VIAL SQ SCH (08:36)
[2020-02-18] MEDS: RisperiDONE 1 MG TABLET PO SCH ×2 (08:37→21:42)
[2020-02-18] MEDS: CALCIUM ACETATE 667 MG CAPSULE PO SCH ×2 (08:37→17:58)
[2020-02-18] MEDS: ATORVASTATIN CALCIUM 40 MG TABLET PO SCH (08:37)
[2020-02-18] MEDS: DEXAMETHASONE SOD PHOS 10 MG/ML VIAL IVP SCH (08:37)
[2020-02-18] MEDS: ASPIRIN 81 MG CHEWABLE TABLET PO SCH (08:37)
[2020-02-18] MEDS: OXYGEN THERAPY IH SCH ×2 (08:38→21:42)
[2020-02-18] MEDS: OMEPRAZOLE 20 MG CAPSULE PO SCH (08:42)
[2020-02-18] MEDS ORDERED: SODIUM CHLORIDE 0.9% 2,000 ML ONE (10:08)
[2020-02-18 12:45] LABS: GLUCOMETER DEV NAME(LOC) 5N.3; GLUCOSE,POINT OF CARE 294 MG/DL (70-110)
[2020-02-18 13:04] LABS: PLATELET COUNT (AUTO) 86 K/uL (150-450)
[2020-02-18 13:05] LABS: PLATELET MORPHOLOGY COMMENT LARGE PLTS PRESENT
[2020-02-18 13:36] LABS: GLUCOMETER DEV NAME(LOC) 5N.1; GLUCOSE,POINT OF CARE 270 MG/DL (70-110)
[2020-02-18] MEDS: LISINOPRIL 20 MG TABLET PO SCH ×2 (16:36→21:42)
[2020-02-18] MEDS: DOXAZOSIN MESYLATE 2 MG TABLET PO SCH (16:36)
[2020-02-18] MEDS: PROPRANOLOL HCL 40 MG TABLET PO SCH ×2 (16:36→21:42)
[2020-02-18] MEDS: AmLODIPine BESYLATE 10 MG TABLET PO SCH (16:36)
[2020-02-18] MEDS: HydrALAZINE HCL 50 MG TABLET PO SCH (16:37)
[2020-02-18 17:03] LABS: INR 1.1 (0.9-1.1); PROTHROMBIN TIME 11.9 SEC (9.4-11.6)
[2020-02-18 18:16] LABS: GLUCOMETER DEV NAME(LOC) 5N.3; GLUCOSE,POINT OF CARE 241 MG/DL (70-110)
[2020-02-18] MEDS: INSULIN GLARGINE,HUM.REC.ANLOG 100 UNITS/ML SQ SCH (21:53)
[2020-02-18] MEDS ORDERED: SODIUM CHLORIDE 0.9% 0 ML IV ONE (23:45)
[2020-02-19] VITALS (7 sets, daily range): BP systolic 101–133; BP diastolic 51–68
[2020-02-19] MEDS: HYDROCODONE/ACETAMINOPHEN 5-325 MG TABLET PO PRN ×2 (02:58→22:24)
[2020-02-19 04:25] LABS: GLUCOMETER DEV NAME(LOC) 5N.1; GLUCOSE,POINT OF CARE 316 MG/DL (70-110)
[2020-02-19] MEDS: INSULIN LISPRO 100 UNITS/ML SQ PRN ×4 (06:25→20:24)
[2020-02-19 08:28] LABS: BASOPHILS % (AUTO) 0.4 % (0.0-2.0); EOSINOPHILS % (AUTO) 0.2 % (1.0-6.0); LYMPHOCYTES # (AUTO) 0.2 K/uL (1.0-4.8); MEAN CORPUSCULAR HEMOGLOBIN 31.4 pg (26.0-34.0); MEAN CORPUSCULAR HGB CONC 33.1 G/dL (31.0-37.0); MEAN CORPUSCULAR VOLUME 95 fL (80-100); MONOCYTES # (AUTO) 0.3 K/uL (0.1-1.0); MONOCYTES % (AUTO) 6.3 % (2.0-9.0); NEUTROPHILS # (AUTO) 3.5 K/uL (1.8-7.7); PLATELET COUNT (AUTO) 94 K/uL (150-450); RED BLOOD CELL COUNT(AUTO) 2.54 MIL/uL (4.50-5.90); RED CELL DISTRIBUTION WIDTH 17.1 % (11.5-14.5)
[2020-02-19 08:36] LABS: NEUTROPHILS % (AUTO) 88.1 % (40.0-70.0); PLATELET MORPHOLOGY COMMENT LARGE PLTS PRESENT
[2020-02-19] MEDS: CALCIUM ACETATE 667 MG CAPSULE PO SCH ×2 (08:57→18:05)
[2020-02-19] MEDS: ASPIRIN 81 MG CHEWABLE TABLET PO SCH (08:59)
[2020-02-19] MEDS: DEXAMETHASONE SOD PHOS 10 MG/ML VIAL IVP SCH (08:59)
[2020-02-19] MEDS: OMEPRAZOLE 20 MG CAPSULE PO SCH (08:59)
[2020-02-19] MEDS: DOXAZOSIN MESYLATE 2 MG TABLET PO SCH (08:59)
[2020-02-19] MEDS: VITAMIN B COMP/VIT C/FOLIC ACID CAPSULE PO SCH (08:59)
[2020-02-19] MEDS: PHENYLEPHRINE/COCOA BUTTER RECTAL SUPPOSITORY PR SCH ×3 (09:00→20:56)
[2020-02-19] MEDS: HydrALAZINE HCL 50 MG TABLET PO SCH (09:00)
[2020-02-19] MEDS: PROPRANOLOL HCL 40 MG TABLET PO SCH ×2 (09:00→20:17)
[2020-02-19] MEDS: AmLODIPine BESYLATE 10 MG TABLET PO SCH (09:00)
[2020-02-19] MEDS: ATORVASTATIN CALCIUM 40 MG TABLET PO SCH (09:00)
[2020-02-19] MEDS: LISINOPRIL 20 MG TABLET PO SCH ×2 (09:00→20:17)
[2020-02-19] MEDS: RisperiDONE 1 MG TABLET PO SCH ×2 (09:00→20:17)
[2020-02-19] MEDS: OXYGEN THERAPY IH SCH ×2 (09:14→20:16)
[2020-02-19] MEDS: MetroNIDAZOLE 500 MG TABLET PO SCH ×2 (09:56→16:23)
[2020-02-19 09:57] LABS: C-REACTIVE PROTEIN QUANT 9.98 mg/dL (0.00-0.30); CREATININE 5.69 mg/dL (0.60-1.30); PHOSPHORUS 3.3 mg/dL (2.5-4.9); POTASSIUM 4.6 mmol/L (3.5-5.1)
[2020-02-19 10:03] LABS: CALCIUM, TOTAL 8.5 mg/dL (8.8-10.5)
[2020-02-19 10:12] LABS: GLUCOMETER DEV NAME(LOC) 5N.3; GLUCOSE,POINT OF CARE 306 MG/DL (70-110)
[2020-02-19] MEDS ORDERED: SODIUM CHLORIDE 0.9% 500 ML IV ONE (20:04)
[2020-02-19] MEDS: CefTRIAXone 1 GM/DEXTROSE 50 ML IV SCH (20:16)
[2020-02-19] MEDS: INSULIN GLARGINE,HUM.REC.ANLOG 100 UNITS/ML SQ SCH (20:25)
[2020-02-19] MEDS: AZITHROMYCIN 500 MG/NS 250 ML IV SCH (21:39)
[2020-02-19 22:48] LABS: GLUCOMETER DEV NAME(LOC) 5N.1; GLUCOSE,POINT OF CARE 391 MG/DL (70-110)
[2020-02-19 23:36] LABS: GLUCOMETER DEV NAME(LOC) 5N.3; GLUCOSE,POINT OF CARE 334 MG/DL (70-110)
[2020-02-19 23:36] LABS: GLUCOMETER DEV NAME(LOC) 5N.3; GLUCOSE,POINT OF CARE 329 MG/DL (70-110)
[2020-02-20] MEDS: MetroNIDAZOLE 500 MG TABLET PO SCH ×4 (00:53→23:37)
[2020-02-20] MEDS: DIPHENOXYLATE/ATROP 2.5-0.025 MG TABLET PO PRN ×2 (02:52→20:50)
[2020-02-20] MEDS: HYDROCODONE/ACETAMINOPHEN 5-325 MG TABLET PO PRN ×2 (03:07→20:42)
[2020-02-20 04:48] VITALS: BP 139/68
[2020-02-20] MEDS: INSULIN LISPRO 100 UNITS/ML SQ PRN ×4 (06:12→21:40)
[2020-02-20 07:37] LABS: EOSINOPHILS % (AUTO) 0.3 % (1.0-6.0); HEMATOCRIT 22.8 % (41-53); HEMOGLOBIN 7.4 g/dL (13.5-17.5); LYMPHOCYTES # (AUTO) 0.3 K/uL (1.0-4.8); LYMPHOCYTES % (AUTO) 7.9 % (22.0-44.0); MEAN CORPUSCULAR HEMOGLOBIN 30.8 pg (26.0-34.0); MEAN CORPUSCULAR HGB CONC 32.6 G/dL (31.0-37.0); MEAN CORPUSCULAR VOLUME 95 fL (80-100); MONOCYTES # (AUTO) 0.2 K/uL (0.1-1.0); MONOCYTES % (AUTO) 4.3 % (2.0-9.0); NEUTROPHILS # (AUTO) 3.4 K/uL (1.8-7.7); PLATELET COUNT (AUTO) 88 K/uL (150-450); RED BLOOD CELL COUNT(AUTO) 2.41 MIL/uL (4.50-5.90); RED CELL DISTRIBUTION WIDTH 16.6 % (11.5-14.5)
[2020-02-20 07:55] LABS: NEUTROPHILS % (AUTO) 86.5 % (40.0-70.0)
[2020-02-20 08:27] LABS: ALBUMIN 1.9 g/dL (3.4-5.0); BILIRUBIN,TOTAL 0.5 mg/dL (0.1-1.0); C-REACTIVE PROTEIN QUANT 6.23 mg/dL (0.00-0.30); CALCIUM, TOTAL 8.4 mg/dL (8.8-10.5); CREATININE 6.79 mg/dL (0.60-1.30); MAGNESIUM 1.9 mg/dL (1.80-2.40); PHOSPHORUS 2.8 mg/dL (2.5-4.9); TOTAL PROTEIN, SERUM 6.8 g/dL (6.4-8.2)
[2020-02-20] MEDS: VITAMIN B COMP/VIT C/FOLIC ACID CAPSULE PO SCH (08:35)
[2020-02-20] MEDS: DEXAMETHASONE SOD PHOS 10 MG/ML VIAL IVP SCH (08:35)
[2020-02-20] MEDS: CALCIUM ACETATE 667 MG CAPSULE PO SCH ×2 (08:35→16:39)
[2020-02-20 08:41] VITALS: BP 149/70
[2020-02-20] MEDS: DOXAZOSIN MESYLATE 2 MG TABLET PO SCH (09:00)
[2020-02-20] MEDS: ATORVASTATIN CALCIUM 40 MG TABLET PO SCH (09:00)
[2020-02-20] MEDS: HydrALAZINE HCL 50 MG TABLET PO SCH (09:00)
[2020-02-20] MEDS: AmLODIPine BESYLATE 10 MG TABLET PO SCH (09:00)
[2020-02-20] MEDS: PROPRANOLOL HCL 40 MG TABLET PO SCH ×2 (09:00→20:41)
[2020-02-20] MEDS: ASPIRIN 81 MG CHEWABLE TABLET PO SCH (09:00)
[2020-02-20] MEDS: OMEPRAZOLE 20 MG CAPSULE PO SCH (09:00)
[2020-02-20] MEDS: LISINOPRIL 20 MG TABLET PO SCH ×2 (09:00→20:42)
[2020-02-20] MEDS: PHENYLEPHRINE/COCOA BUTTER RECTAL SUPPOSITORY PR SCH ×4 (09:00→21:00)
[2020-02-20] MEDS: RisperiDONE 1 MG TABLET PO SCH ×2 (09:00→20:42)
[2020-02-20 11:11] VITALS: BP 143/68
[2020-02-20] MEDS ORDERED: LIDOCAINE/PF 1% 30 ML VIAL ONE (11:54)
[2020-02-20] MEDS ORDERED: BUPIVACAINE HCL/PF 0.25% 30 ML VIAL ONE (11:54)
[2020-02-20] MEDS ORDERED: VANCOMYCIN HCL 1 GM/VIAL ONE (11:55)
[2020-02-20] MEDS ORDERED: BACITRACIN 50,000 UNITS/VIAL ONE (11:55)
[2020-02-20] MEDS ORDERED: SODIUM CL IRRIG SOLN BAG 3,000 ML IRRIG ONE (11:55)
[2020-02-20] MEDS ORDERED: SODIUM CHLORIDE 0.9% 1,000 ML ONE (11:55)
[2020-02-20 12:22] LABS: GLUCOMETER DEV NAME(LOC) 5N.3; GLUCOSE,POINT OF CARE 261 MG/DL (70-110)
[2020-02-20] MEDS ORDERED: PROPOFOL 1000 MG/ISO-OSM 100 ML IV ONE (12:33)
[2020-02-20] MEDS ORDERED: GELATIN SPONGE,ABSORBABLE 100 MM TP ONE (13:02)
[2020-02-20] MEDS ORDERED: THROMBIN, BOVINE 20000 UNITS/VIAL POWDER TP ONE (13:02)
[2020-02-20 13:14] LABS: GLUCOMETER DEV NAME(LOC) 5S.1; GLUCOSE,POINT OF CARE 317 MG/DL (70-110)
[2020-02-20] MEDS: EPOETIN ALFA 10,000 UNITS/ML 2 ML VIAL SQ SCH (14:39)
[2020-02-20] MEDS ORDERED: FentaNYL CITRATE-PF 100 MCG/2 ML VIAL IVP PRN (15:15)
[2020-02-20] MEDS ORDERED: MEPERIDINE-PF 25 MG/ML VIAL IVP PRN (15:15)
[2020-02-20 15:54] VITALS: BP 138/68
[2020-02-20 18:06] LABS: GLUCOMETER DEV NAME(LOC) 5S.1; GLUCOSE,POINT OF CARE 356 MG/DL (70-110)
[2020-02-20 19:48] VITALS: BP 137/72
[2020-02-20] MEDS: CefTRIAXone 1 GM/DEXTROSE 50 ML IV SCH (20:41)
[2020-02-20] MEDS: OXYGEN THERAPY IH SCH (21:01)
[2020-02-20] MEDS ORDERED: DEXTROSE 50%-WATER 25 GM/50 ML SYRINGE IVP PRN (21:15)
[2020-02-20] MEDS: AZITHROMYCIN 500 MG/NS 250 ML IV SCH (21:29)
[2020-02-20] MEDS: INSULIN GLARGINE,HUM.REC.ANLOG 100 UNITS/ML SQ SCH (21:41)
[2020-02-20 22:39] LABS: GLUCOMETER DEV NAME(LOC) 5S.1; GLUCOSE,POINT OF CARE 404 MG/DL (70-110)
[2020-02-20 23:56] VITALS: BP 136/70
[2020-02-21 03:37] VITALS: BP 174/82
[2020-02-21 05:44] VITALS: BP 140/73
[2020-02-21] MEDS ORDERED: FentaNYL CITRATE-PF 100 MCG/2 ML VIAL IVP ONE (05:51)
[2020-02-21] MEDS ORDERED: LIDOCAINE/PF 2% 5 ML VIAL IM ONE (05:51)
[2020-02-21] MEDS ORDERED: MIDAZOLAM HCL 2 MG/2 ML VIAL IVP ONE (05:51)
[2020-02-21] MEDS: INSULIN LISPRO 100 UNITS/ML SQ PRN ×4 (06:25→20:32)
[2020-02-21 06:39] LABS: BASOPHILS % (AUTO) 0.3 % (0.0-2.0); EOSINOPHILS % (AUTO) 0.6 % (1.0-6.0); HEMOGLOBIN 7.9 g/dL (13.5-17.5); LYMPHOCYTES # (AUTO) 0.4 K/uL (1.0-4.8); LYMPHOCYTES % (AUTO) 9.4 % (22.0-44.0); MEAN CORPUSCULAR HEMOGLOBIN 31.3 pg (26.0-34.0); MEAN CORPUSCULAR HGB CONC 33.1 G/dL (31.0-37.0); MEAN CORPUSCULAR VOLUME 94 fL (80-100); MONOCYTES # (AUTO) 0.2 K/uL (0.1-1.0); MONOCYTES % (AUTO) 5.6 % (2.0-9.0); NEUTROPHILS # (AUTO) 3.6 K/uL (1.8-7.7); NEUTROPHILS % (AUTO) 84.1 % (40.0-70.0); PLATELET COUNT (AUTO) 89 K/uL (150-450); RED BLOOD CELL COUNT(AUTO) 2.54 MIL/uL (4.50-5.90); RED CELL DISTRIBUTION WIDTH 16.6 % (11.5-14.5)
[2020-02-21] MEDS: DEXAMETHASONE SOD PHOS 10 MG/ML VIAL IVP SCH (08:09)
[2020-02-21] MEDS: OXYGEN THERAPY IH SCH (08:09)
[2020-02-21] MEDS: MetroNIDAZOLE 500 MG TABLET PO SCH ×3 (08:09→23:51)
[2020-02-21] MEDS: CALCIUM ACETATE 667 MG CAPSULE PO SCH ×2 (08:09→16:47)
[2020-02-21] MEDS: ATORVASTATIN CALCIUM 40 MG TABLET PO SCH (08:10)
[2020-02-21] MEDS: ASPIRIN 81 MG CHEWABLE TABLET PO SCH (08:10)
[2020-02-21] MEDS: OMEPRAZOLE 20 MG CAPSULE PO SCH (08:10)
[2020-02-21 08:23] LABS: C-REACTIVE PROTEIN QUANT 4.42 mg/dL (0.00-0.30); CALCIUM, TOTAL 8.3 mg/dL (8.8-10.5); CREATININE 8.17 mg/dL (0.60-1.30); POTASSIUM 5.4 mmol/L (3.5-5.1)
[2020-02-21 08:53] VITALS: BP 143/80
[2020-02-21] MEDS: PHENYLEPHRINE/COCOA BUTTER RECTAL SUPPOSITORY PR SCH ×3 (09:00→20:30)
[2020-02-21 11:58] VITALS: BP 146/89
[2020-02-21] MEDS: DOXAZOSIN MESYLATE 2 MG TABLET PO SCH (12:09)
[2020-02-21] MEDS: RisperiDONE 1 MG TABLET PO SCH ×2 (12:09→20:30)
[2020-02-21] MEDS: PROPRANOLOL HCL 40 MG TABLET PO SCH ×2 (12:09→22:02)
[2020-02-21] MEDS: VITAMIN B COMP/VIT C/FOLIC ACID CAPSULE PO SCH (12:09)
[2020-02-21] MEDS: HydrALAZINE HCL 50 MG TABLET PO SCH (12:22)
[2020-02-21] MEDS: AmLODIPine BESYLATE 10 MG TABLET PO SCH (12:22)
[2020-02-21] MEDS: LISINOPRIL 20 MG TABLET PO SCH ×2 (12:23→20:30)
[2020-02-21 17:24] LABS: GLUCOMETER DEV NAME(LOC) 5S.1; GLUCOSE,POINT OF CARE 257 MG/DL (70-110)
[2020-02-21 17:25] LABS: GLUCOMETER DEV NAME(LOC) 5S.1; GLUCOSE,POINT OF CARE 130 MG/DL (70-110)
[2020-02-21 17:26] LABS: GLUCOMETER DEV NAME(LOC) 5S.1; GLUCOSE,POINT OF CARE 315 MG/DL (70-110)
[2020-02-21] MEDS: CeFAZolin 1 GM/DEXTROSE 50 ML IV SCH (18:37)
[2020-02-21 20:24] VITALS: BP 134/69
[2020-02-21] MEDS ORDERED: INSULIN GLARGINE,HUM.REC.ANLOG 100 UNITS/ML SQ SCH (21:00)
[2020-02-21] MEDS: HYDROCODONE/ACETAMINOPHEN 5-325 MG TABLET PO PRN (23:51)
[2020-02-22 00:24] VITALS: BP 144/70
[2020-02-22] MEDS: HYDROmorphone 2 MG/ML SYRINGE IVP PRN (03:18)
[2020-02-22] MEDS: OXYGEN THERAPY IH SCH ×3 (03:48→21:13)
[2020-02-22 04:52] VITALS: BP 154/81
[2020-02-22 05:13] LABS: GLUCOMETER DEV NAME(LOC) 5N.3; GLUCOSE,POINT OF CARE 391 MG/DL (70-110)
[2020-02-22] MEDS ORDERED: BACITRACIN 50,000 UNITS/VIAL ONE ×2 (06:53→07:00)
[2020-02-22] MEDS ORDERED: BUPIVACAINE HCL/PF 0.25% 30 ML VIAL ONE (06:53)
[2020-02-22] MEDS ORDERED: GELATIN SPONGE,ABSORBABLE 50 MM TP ONE (06:53)
[2020-02-22] MEDS ORDERED: THROMBIN, BOVINE 20000 UNITS/VIAL POWDER TP ONE (06:53)
[2020-02-22] MEDS ORDERED: LIDOCAINE/PF 1% 30 ML VIAL ONE (06:53)
[2020-02-22] MEDS ORDERED: SODIUM CHLORIDE 0.9% 0 ML ONE (06:58)
[2020-02-22 07:27] LABS: BASOPHILS % (AUTO) 1.2 % (0.0-2.0); EOSINOPHILS % (AUTO) 0.6 % (1.0-6.0); HEMATOCRIT 23.5 % (41-53); HEMOGLOBIN 7.9 g/dL (13.5-17.5); LYMPHOCYTES # (AUTO) 0.4 K/uL (1.0-4.8); LYMPHOCYTES % (AUTO) 8.4 % (22.0-44.0); MEAN CORPUSCULAR HEMOGLOBIN 32.2 pg (26.0-34.0); MEAN CORPUSCULAR HGB CONC 33.8 G/dL (31.0-37.0); MEAN CORPUSCULAR VOLUME 95 fL (80-100); MONOCYTES # (AUTO) 0.3 K/uL (0.1-1.0); MONOCYTES % (AUTO) 5.3 % (2.0-9.0); NEUTROPHILS # (AUTO) 4.2 K/uL (1.8-7.7); NEUTROPHILS % (AUTO) 84.5 % (40.0-70.0); PLATELET COUNT (AUTO) 88 K/uL (150-450); RED BLOOD CELL COUNT(AUTO) 2.47 MIL/uL (4.50-5.90); RED CELL DISTRIBUTION WIDTH 16.7 % (11.5-14.5)
[2020-02-22 07:41] LABS: PLATELET MORPHOLOGY COMMENT LARGE PLTS PRESENT
[2020-02-22 08:05] LABS: GLUCOMETER DEV NAME(LOC) 5S.1; GLUCOSE,POINT OF CARE 282 MG/DL (70-110)
[2020-02-22 08:18] LABS: BILIRUBIN,TOTAL 0.6 mg/dL (0.1-1.0); C-REACTIVE PROTEIN QUANT 3.46 mg/dL (0.00-0.30); CALCIUM, TOTAL 8.3 mg/dL (8.8-10.5); CREATININE 6.08 mg/dL (0.60-1.30); POTASSIUM 4.9 mmol/L (3.5-5.1); TOTAL PROTEIN, SERUM 6.7 g/dL (6.4-8.2)
[2020-02-22] MEDS: ASPIRIN 81 MG CHEWABLE TABLET PO SCH (09:00)
[2020-02-22 09:40] VITALS: BP_SYST 160; BP_SYST 169; BP_DIAS 96
[2020-02-22] MEDS: ATORVASTATIN CALCIUM 40 MG TABLET PO SCH (10:22)
[2020-02-22] MEDS: HydrALAZINE HCL 50 MG TABLET PO SCH (10:22)
[2020-02-22] MEDS: OMEPRAZOLE 20 MG CAPSULE PO SCH (10:22)
[2020-02-22] MEDS: PROPRANOLOL HCL 40 MG TABLET PO SCH ×2 (10:22→20:57)
[2020-02-22] MEDS: CALCIUM ACETATE 667 MG CAPSULE PO SCH ×2 (10:22→17:51)
[2020-02-22] MEDS: VITAMIN B COMP/VIT C/FOLIC ACID CAPSULE PO SCH (10:23)
[2020-02-22] MEDS: DOXAZOSIN MESYLATE 2 MG TABLET PO SCH (10:23)
[2020-02-22] MEDS: DEXAMETHASONE SOD PHOS 10 MG/ML VIAL IVP SCH (10:23)
[2020-02-22] MEDS: MetroNIDAZOLE 500 MG TABLET PO SCH ×2 (10:23→17:50)
[2020-02-22] MEDS: LISINOPRIL 20 MG TABLET PO SCH ×2 (10:23→20:57)
[2020-02-22] MEDS: RisperiDONE 1 MG TABLET PO SCH ×2 (10:23→20:57)
[2020-02-22] MEDS: AmLODIPine BESYLATE 10 MG TABLET PO SCH (10:23)
[2020-02-22] MEDS: PHENYLEPHRINE/COCOA BUTTER RECTAL SUPPOSITORY PR SCH ×3 (10:23→20:58)
[2020-02-22 10:57] LABS: GLUCOMETER DEV NAME(LOC) 5N.3; GLUCOSE,POINT OF CARE 233 MG/DL (70-110)
[2020-02-22 12:18] VITALS: BP 169/78
[2020-02-22 16:00] VITALS: BP 143/69
[2020-02-22] MEDS: CeFAZolin 1 GM/DEXTROSE 50 ML IV SCH (17:50)
[2020-02-22 20:07] VITALS: BP 137/76
[2020-02-22] MEDS: HYDROCODONE/ACETAMINOPHEN 5-325 MG TABLET PO PRN (20:57)
[2020-02-22] MEDS: INSULIN LISPRO 100 UNITS/ML SQ PRN (21:11)
[2020-02-22] MEDS: INSULIN GLARGINE,HUM.REC.ANLOG 100 UNITS/ML SQ SCH (21:11)
[2020-02-23] MEDS: MetroNIDAZOLE 500 MG TABLET PO SCH ×3 (00:37→16:31)
[2020-02-23 00:43] VITALS: BP 140/72
[2020-02-23] MEDS: HYDROmorphone 2 MG/ML SYRINGE IVP PRN (01:29)
[2020-02-23 04:25] VITALS: BP 138/81
[2020-02-23] MEDS: INSULIN LISPRO 100 UNITS/ML SQ PRN ×3 (05:47→23:14)
[2020-02-23] MEDS ORDERED: MIDAZOLAM HCL 2 MG/2 ML VIAL IVP ONE (06:23)
[2020-02-23] MEDS ORDERED: PROPOFOL 1% 20 ML VIAL IVP ONE (06:23)
[2020-02-23] MEDS ORDERED: LIDOCAINE/PF 2% 5 ML SYRINGE IVP ONE (06:23)
[2020-02-23] MEDS ORDERED: FentaNYL CITRATE-PF 100 MCG/2 ML VIAL IVP ONE (06:23)
[2020-02-23 07:48] LABS: GLUCOMETER DEV NAME(LOC) 5S.1; GLUCOSE,POINT OF CARE 345 MG/DL (70-110)
[2020-02-23 08:20] LABS: ALBUMIN 2.1 g/dL (3.4-5.0); BILIRUBIN,TOTAL 0.6 mg/dL (0.1-1.0); C-REACTIVE PROTEIN QUANT 2.84 mg/dL (0.00-0.30); CALCIUM, TOTAL 8.3 mg/dL (8.8-10.5); CREATININE 7.52 mg/dL (0.60-1.30); POTASSIUM 5.3 mmol/L (3.5-5.1); TOTAL PROTEIN, SERUM 6.8 g/dL (6.4-8.2)
[2020-02-23] MEDS: PHENYLEPHRINE/COCOA BUTTER RECTAL SUPPOSITORY PR SCH ×3 (08:21→21:00)
[2020-02-23] MEDS: VITAMIN B COMP/VIT C/FOLIC ACID CAPSULE PO SCH (08:21)
[2020-02-23] MEDS: PROPRANOLOL HCL 40 MG TABLET PO SCH ×2 (08:21→23:07)
[2020-02-23] MEDS: RisperiDONE 1 MG TABLET PO SCH ×2 (08:22→23:06)
[2020-02-23] MEDS: LISINOPRIL 20 MG TABLET PO SCH ×2 (08:22→23:07)
[2020-02-23] MEDS: AmLODIPine BESYLATE 10 MG TABLET PO SCH (08:22)
[2020-02-23] MEDS: OMEPRAZOLE 20 MG CAPSULE PO SCH (08:22)
[2020-02-23] MEDS: CALCIUM ACETATE 667 MG CAPSULE PO SCH ×2 (08:23→18:07)
[2020-02-23] MEDS: ASPIRIN 81 MG CHEWABLE TABLET PO SCH (08:23)
[2020-02-23] MEDS: ATORVASTATIN CALCIUM 40 MG TABLET PO SCH (08:24)
[2020-02-23 08:48] VITALS: BP 148/73
[2020-02-23] MEDS: EPOETIN ALFA 10,000 UNITS/ML 2 ML VIAL SQ SCH (09:43)
[2020-02-23] MEDS: DEXAMETHASONE SOD PHOS 10 MG/ML VIAL IVP SCH (09:43)
[2020-02-23] MEDS: HydrALAZINE HCL 50 MG TABLET PO SCH (09:44)
[2020-02-23] MEDS: OXYGEN THERAPY IH SCH ×2 (09:45→20:00)
[2020-02-23 10:55] LABS: GLUCOMETER DEV NAME(LOC) 5N.3; GLUCOSE,POINT OF CARE 411 MG/DL (70-110)
[2020-02-23 10:55] LABS: GLUCOMETER DEV NAME(LOC) 5N.3; GLUCOSE,POINT OF CARE 222 MG/DL (70-110)
[2020-02-23] MEDS ORDERED: SODIUM CHLORIDE 0.9% 2,000 ML ONE (13:11)
[2020-02-23 13:17] VITALS: BP 151/71
[2020-02-23 16:00] VITALS: BP 163/59
[2020-02-23] MEDS: DOXAZOSIN MESYLATE 2 MG TABLET PO SCH (16:30)
[2020-02-23] MEDS: CeFAZolin 1 GM/DEXTROSE 50 ML IV SCH (18:07)
[2020-02-23 20:10] VITALS: BP 141/69
[2020-02-23] MEDS: INSULIN GLARGINE,HUM.REC.ANLOG 100 UNITS/ML SQ SCH (23:13)
[2020-02-24] VITALS (7 sets, daily range): BP systolic 128–145; BP diastolic 67–76
[2020-02-24] MEDS: MetroNIDAZOLE 500 MG TABLET PO SCH ×4 (00:27→23:39)
[2020-02-24] MEDS: HYDROCODONE/ACETAMINOPHEN 5-325 MG TABLET PO PRN (01:36)
[2020-02-24 06:14] LABS: GLUCOMETER DEV NAME(LOC) 5N.1; GLUCOSE,POINT OF CARE 307 MG/DL (70-110)
[2020-02-24 06:14] LABS: GLUCOMETER DEV NAME(LOC) 5N.1; GLUCOSE,POINT OF CARE 142 MG/DL (70-110)
[2020-02-24 06:41] LABS: BASOPHILS % (AUTO) 0.6 % (0.0-2.0); EOSINOPHILS % (AUTO) 1.1 % (1.0-6.0); HEMOGLOBIN 7.5 g/dL (13.5-17.5); LYMPHOCYTES # (AUTO) 0.5 K/uL (1.0-4.8); LYMPHOCYTES % (AUTO) 12.9 % (22.0-44.0); MEAN CORPUSCULAR HEMOGLOBIN 32.5 pg (26.0-34.0); MEAN CORPUSCULAR HGB CONC 33.9 G/dL (31.0-37.0); MEAN CORPUSCULAR VOLUME 96 fL (80-100); MONOCYTES # (AUTO) 0.3 K/uL (0.1-1.0); MONOCYTES % (AUTO) 7.7 % (2.0-9.0); NEUTROPHILS # (AUTO) 2.7 K/uL (1.8-7.7); NEUTROPHILS % (AUTO) 77.7 % (40.0-70.0); PLATELET COUNT (AUTO) 71 K/uL (150-450); RED BLOOD CELL COUNT(AUTO) 2.29 MIL/uL (4.50-5.90); RED CELL DISTRIBUTION WIDTH 17.1 % (11.5-14.5)
[2020-02-24] MEDS: INSULIN LISPRO 100 UNITS/ML SQ PRN ×3 (06:56→20:39)
[2020-02-24 07:30] LABS: PLATELET MORPHOLOGY COMMENT LARGE PLTS PRESENT
[2020-02-24] MEDS: HydrALAZINE HCL 50 MG TABLET PO SCH (07:39)
[2020-02-24] MEDS: CALCIUM ACETATE 667 MG CAPSULE PO SCH ×2 (07:39→17:29)
[2020-02-24] MEDS: OMEPRAZOLE 20 MG CAPSULE PO SCH (07:39)
[2020-02-24] MEDS: AmLODIPine BESYLATE 10 MG TABLET PO SCH (07:39)
[2020-02-24] MEDS: ATORVASTATIN CALCIUM 40 MG TABLET PO SCH (07:39)
[2020-02-24] MEDS: DOXAZOSIN MESYLATE 2 MG TABLET PO SCH (07:39)
[2020-02-24] MEDS: LISINOPRIL 20 MG TABLET PO SCH ×2 (07:39→20:23)
[2020-02-24] MEDS: DEXAMETHASONE SOD PHOS 10 MG/ML VIAL IVP SCH (07:40)
[2020-02-24] MEDS: VITAMIN B COMP/VIT C/FOLIC ACID CAPSULE PO SCH (07:40)
[2020-02-24] MEDS: RisperiDONE 1 MG TABLET PO SCH ×2 (07:40→20:23)
[2020-02-24] MEDS: VIT E ACET/GLY/DIMETH/WATER 236 ML LOTION TP SCH (07:41)
[2020-02-24] MEDS: PHENYLEPHRINE/COCOA BUTTER RECTAL SUPPOSITORY PR SCH ×3 (07:41→20:23)
[2020-02-24] MEDS: OXYGEN THERAPY IH SCH ×2 (07:51→20:23)
[2020-02-24] MEDS: ASPIRIN 81 MG CHEWABLE TABLET PO SCH (07:52)
[2020-02-24] MEDS: PROPRANOLOL HCL 40 MG TABLET PO SCH ×2 (07:55→20:23)
[2020-02-24 08:02] LABS: ALBUMIN 1.9 g/dL (3.4-5.0); BILIRUBIN,TOTAL 0.5 mg/dL (0.1-1.0); C-REACTIVE PROTEIN QUANT 2.09 mg/dL (0.00-0.30); CALCIUM, TOTAL 7.8 mg/dL (8.8-10.5); CREATININE 5.47 mg/dL (0.60-1.30); POTASSIUM 4.6 mmol/L (3.5-5.1); TOTAL PROTEIN, SERUM 6.3 g/dL (6.4-8.2)
[2020-02-24 16:25] LABS: GLUCOMETER DEV NAME(LOC) 5N.3; GLUCOSE,POINT OF CARE 169 MG/DL (70-110)
[2020-02-24] MEDS: CeFAZolin 1 GM/DEXTROSE 50 ML IV SCH (17:28)
[2020-02-24] MEDS: DIPHENOXYLATE/ATROP 2.5-0.025 MG TABLET PO PRN (20:23)
[2020-02-24] MEDS: INSULIN GLARGINE,HUM.REC.ANLOG 100 UNITS/ML SQ SCH (20:38)
[2020-02-24 22:55] LABS: GLUCOMETER DEV NAME(LOC) 5S.1; GLUCOSE,POINT OF CARE 362 MG/DL (70-110)
[2020-02-24 22:55] LABS: GLUCOMETER DEV NAME(LOC) 5S.1; GLUCOSE,POINT OF CARE 238 MG/DL (70-110)
[2020-02-24 22:55] LABS: GLUCOMETER DEV NAME(LOC) 5S.1; GLUCOSE,POINT OF CARE 358 MG/DL (70-110)
[2020-02-24 22:55] LABS: GLUCOMETER DEV NAME(LOC) 5S.1; GLUCOSE,POINT OF CARE 286 MG/DL (70-110)
[2020-02-25 05:04] VITALS: BP 121/57
[2020-02-25] MEDS: INSULIN LISPRO 100 UNITS/ML SQ PRN ×4 (06:06→21:01)
[2020-02-25 06:44] LABS: BASOPHILS % (AUTO) 0.4 % (0.0-2.0); EOSINOPHILS % (AUTO) 1.1 % (1.0-6.0); HEMATOCRIT 23.3 % (41-53); HEMOGLOBIN 7.9 g/dL (13.5-17.5); LYMPHOCYTES # (AUTO) 0.5 K/uL (1.0-4.8); LYMPHOCYTES % (AUTO) 13.7 % (22.0-44.0); MEAN CORPUSCULAR HEMOGLOBIN 32.8 pg (26.0-34.0); MEAN CORPUSCULAR HGB CONC 33.9 G/dL (31.0-37.0); MEAN CORPUSCULAR VOLUME 97 fL (80-100); MONOCYTES # (AUTO) 0.3 K/uL (0.1-1.0); MONOCYTES % (AUTO) 9.2 % (2.0-9.0); NEUTROPHILS # (AUTO) 2.7 K/uL (1.8-7.7); NEUTROPHILS % (AUTO) 75.6 % (40.0-70.0); PLATELET COUNT (AUTO) 65 K/uL (150-450); RED BLOOD CELL COUNT(AUTO) 2.41 MIL/uL (4.50-5.90); RED CELL DISTRIBUTION WIDTH 18.6 % (11.5-14.5)
[2020-02-25 07:52] LABS: ALBUMIN 1.9 g/dL (3.4-5.0); BILIRUBIN,TOTAL 0.5 mg/dL (0.1-1.0); C-REACTIVE PROTEIN QUANT 1.74 mg/dL (0.00-0.30); CALCIUM, TOTAL 8.1 mg/dL (8.8-10.5); CREATININE 7.1 mg/dL (0.60-1.30); POTASSIUM 4.4 mmol/L (3.5-5.1); TOTAL PROTEIN, SERUM 6.4 g/dL (6.4-8.2)
[2020-02-25] MEDS: CALCIUM ACETATE 667 MG CAPSULE PO SCH ×2 (08:00→17:52)
[2020-02-25] MEDS: OXYGEN THERAPY IH SCH ×2 (08:00→20:00)
[2020-02-25 08:19] LABS: GLUCOMETER DEV NAME(LOC) 5S.1; GLUCOSE,POINT OF CARE 141 MG/DL (70-110)
[2020-02-25 08:44] VITALS: BP 131/75
[2020-02-25] MEDS: PROPRANOLOL HCL 40 MG TABLET PO SCH ×2 (09:00→20:47)
[2020-02-25] MEDS: HydrALAZINE HCL 50 MG TABLET PO SCH (09:00)
[2020-02-25] MEDS: DOXAZOSIN MESYLATE 2 MG TABLET PO SCH (09:00)
[2020-02-25] MEDS: AmLODIPine BESYLATE 10 MG TABLET PO SCH (09:00)
[2020-02-25] MEDS: LISINOPRIL 20 MG TABLET PO SCH ×2 (09:00→20:47)
[2020-02-25] MEDS: OMEPRAZOLE 20 MG CAPSULE PO SCH (11:33)
[2020-02-25] MEDS: ASPIRIN 81 MG CHEWABLE TABLET PO SCH (11:33)
[2020-02-25] MEDS: VITAMIN B COMP/VIT C/FOLIC ACID CAPSULE PO SCH (11:33)
[2020-02-25] MEDS: MetroNIDAZOLE 500 MG TABLET PO SCH ×2 (11:34→15:51)
[2020-02-25] MEDS: ATORVASTATIN CALCIUM 40 MG TABLET PO SCH (11:34)
[2020-02-25] MEDS: DEXAMETHASONE SOD PHOS 10 MG/ML VIAL IVP SCH (11:35)
[2020-02-25] MEDS: RisperiDONE 1 MG TABLET PO SCH ×2 (11:35→20:47)
[2020-02-25] MEDS: EPOETIN ALFA 10,000 UNITS/ML 2 ML VIAL SQ SCH (11:37)
[2020-02-25] MEDS: PHENYLEPHRINE/COCOA BUTTER RECTAL SUPPOSITORY PR SCH ×3 (11:38→21:00)
[2020-02-25 12:06] VITALS: BP 144/71
[2020-02-25] MEDS: VIT E ACET/GLY/DIMETH/WATER 236 ML LOTION TP SCH (12:17)
[2020-02-25 14:59] LABS: GLUCOMETER DEV NAME(LOC) 5S.1; GLUCOSE,POINT OF CARE 159 MG/DL (70-110)
[2020-02-25] MEDS: MICONAZOLE NITRATE 2% 142 GM CREAM [BAZA] TP SCH (15:33)
[2020-02-25] MEDS: HYDROCODONE/ACETAMINOPHEN 5-325 MG TABLET PO PRN (15:51)
[2020-02-25 16:37] VITALS: BP 156/77
[2020-02-25] MEDS: CeFAZolin 1 GM/DEXTROSE 50 ML IV SCH (17:49)
[2020-02-25 18:50] VITALS: BP 146/73
[2020-02-25] MEDS ORDERED: VANCOMYCIN HCL 1 GM/D5% WATER 200 ML IV PRN (19:00)
[2020-02-25] MEDS ORDERED: VANCOMYCIN HCL 1 GM/D5% WATER 200 ML IV ONE (20:00)
[2020-02-25] MEDS: INSULIN GLARGINE,HUM.REC.ANLOG 100 UNITS/ML SQ SCH (21:00)
[2020-02-25 21:09] VITALS: BP 150/80
[2020-02-26 00:31] VITALS: BP 157/81
[2020-02-26 01:08] LABS: GLUCOMETER DEV NAME(LOC) 5S.1; GLUCOSE,POINT OF CARE 255 MG/DL (70-110)
[2020-02-26] MEDS: HYDROCODONE/ACETAMINOPHEN 5-325 MG TABLET PO PRN (01:31)
[2020-02-26 04:23] VITALS: BP 151/84
[2020-02-26] MEDS: INSULIN LISPRO 100 UNITS/ML SQ PRN ×3 (05:38→17:19)
[2020-02-26 06:18] LABS: GLUCOMETER DEV NAME(LOC) 5S.1; GLUCOSE,POINT OF CARE 206 MG/DL (70-110)
[2020-02-26 06:30] LABS: BASOPHILS % (AUTO) 0.5 % (0.0-2.0); EOSINOPHILS % (AUTO) 0.7 % (1.0-6.0); HEMATOCRIT 24.2 % (41-53); HEMOGLOBIN 8.1 g/dL (13.5-17.5); LYMPHOCYTES # (AUTO) 0.4 K/uL (1.0-4.8); MEAN CORPUSCULAR HEMOGLOBIN 32.7 pg (26.0-34.0); MEAN CORPUSCULAR HGB CONC 33.5 G/dL (31.0-37.0); MEAN CORPUSCULAR VOLUME 98 fL (80-100); MONOCYTES # (AUTO) 0.3 K/uL (0.1-1.0); MONOCYTES % (AUTO) 7.9 % (2.0-9.0); NEUTROPHILS # (AUTO) 2.6 K/uL (1.8-7.7); NEUTROPHILS % (AUTO) 78.9 % (40.0-70.0); PLATELET COUNT (AUTO) 59 K/uL (150-450); RED BLOOD CELL COUNT(AUTO) 2.47 MIL/uL (4.50-5.90); RED CELL DISTRIBUTION WIDTH 20.1 % (11.5-14.5)
[2020-02-26 07:21] LABS: BILIRUBIN,TOTAL 0.5 mg/dL (0.1-1.0); CALCIUM, TOTAL 8.1 mg/dL (8.8-10.5); CREATININE 5.46 mg/dL (0.60-1.30); POTASSIUM 4.7 mmol/L (3.5-5.1); TOTAL PROTEIN, SERUM 6.5 g/dL (6.4-8.2)
[2020-02-26 07:48] LABS: PLATELET MORPHOLOGY COMMENT LARGE PLTS PRESENT
[2020-02-26 08:00] VITALS: BP 141/74
[2020-02-26] MEDS: OXYGEN THERAPY IH SCH (08:00)
[2020-02-26] MEDS: ASPIRIN 81 MG CHEWABLE TABLET PO SCH (09:00)
[2020-02-26] MEDS: CALCIUM ACETATE 667 MG CAPSULE PO SCH (09:10)
[2020-02-26] MEDS: OMEPRAZOLE 20 MG CAPSULE PO SCH (09:10)
[2020-02-26] MEDS: LISINOPRIL 20 MG TABLET PO SCH (09:11)
[2020-02-26] MEDS: HydrALAZINE HCL 50 MG TABLET PO SCH (09:11)
[2020-02-26] MEDS: RisperiDONE 1 MG TABLET PO SCH (09:11)
[2020-02-26] MEDS: AmLODIPine BESYLATE 10 MG TABLET PO SCH (09:11)
[2020-02-26] MEDS: VITAMIN B COMP/VIT C/FOLIC ACID CAPSULE PO SCH (09:11)
[2020-02-26] MEDS: PHENYLEPHRINE/COCOA BUTTER RECTAL SUPPOSITORY PR SCH ×2 (09:11→16:52)
[2020-02-26] MEDS: DEXAMETHASONE SOD PHOS 10 MG/ML VIAL IVP SCH (09:12)
[2020-02-26] MEDS: PROPRANOLOL HCL 40 MG TABLET PO SCH (09:12)
[2020-02-26] MEDS: DOXAZOSIN MESYLATE 2 MG TABLET PO SCH (09:12)
[2020-02-26] MEDS: MICONAZOLE NITRATE 2% 142 GM CREAM [BAZA] TP SCH (09:13)
[2020-02-26] MEDS: VIT E ACET/GLY/DIMETH/WATER 236 ML LOTION TP SCH (09:13)
[2020-02-26] MEDS: ATORVASTATIN CALCIUM 40 MG TABLET PO SCH (09:13)
[2020-02-26 11:48] VITALS: BP 142/76
[2020-02-26] MEDS ORDERED: VANCOMYCIN HCL 750 MG in DEXTROSE 5%-WATER 250 ML IV ONE (12:00)
[2020-02-26] MEDS ORDERED: EPOE10I SQ (12:31)
[2020-02-26] MEDS ORDERED: PHEN1SUP43 PR (12:34)
[2020-02-26] MEDS ORDERED: MICO113C TP (12:34)
[2020-02-26] MEDS ORDERED: ACET-3207 PO (12:36)
[2020-02-26] MEDS ORDERED: VANC1FZ IV (12:41)
[2020-02-26 16:28] VITALS: BP 140/72
[2020-02-26 16:30] LABS: GLUCOMETER DEV NAME(LOC) 5N.3; GLUCOSE,POINT OF CARE 188 MG/DL (70-110)
[2020-02-26 16:30] LABS: GLUCOMETER DEV NAME(LOC) 5N.3; GLUCOSE,POINT OF CARE 250 MG/DL (70-110)
[2020-02-26 16:30] LABS: GLUCOMETER DEV NAME(LOC) 5N.3; GLUCOSE,POINT OF CARE 314 MG/DL (70-110)
[2020-02-26 17:34] LABS: GLUCOMETER DEV NAME(LOC) 5N.3; GLUCOSE,POINT OF CARE 363 MG/DL (70-110)
== END 2020-02-26 18:55 | disposition home health service (06) | DRG 853 ==
LOC: EMS 22:17 → ICU 02-10 00:02 → ICUN 02-10 00:03 → ICU 02-10 23:52 → 5N 02-11 15:00
PROVIDERS: ADMIT Hospitalist; ATTEND Hospitalist
PROC: 30233N1 Transfusion of Nonautologous Red Blood Cells into Peripheral Vein, Percutaneous Approach (ICD-10-PCS; 2020-02-10)
PROC: 5A1D70Z Performance of Urinary Filtration, Intermittent, Less than 6 Hours Per Day (ICD-10-PCS; 2020-02-11)
PROC: 5A1D70Z Performance of Urinary Filtration, Intermittent, Less than 6 Hours Per Day (ICD-10-PCS; 2020-02-13)
PROC: 30233L1 Transfusion of Nonautologous Fresh Plasma into Peripheral Vein, Percutaneous Approach (ICD-10-PCS; 2020-02-16)
PROC: 5A1D70Z Performance of Urinary Filtration, Intermittent, Less than 6 Hours Per Day (ICD-10-PCS; 2020-02-16)
PROC: 5A1D70Z Performance of Urinary Filtration, Intermittent, Less than 6 Hours Per Day (ICD-10-PCS; 2020-02-18)
PROC: 5A1D70Z Performance of Urinary Filtration, Intermittent, Less than 6 Hours Per Day (ICD-10-PCS; 2020-02-21)
PROC: 0Y6U0Z0 Detachment at Left 3rd Toe, Complete, Open Approach (ICD-10-PCS; 2020-02-22)
PROC: 0JBR0ZZ Excision of Left Foot Subcutaneous Tissue and Fascia, Open Approach (ICD-10-PCS; 2020-02-22)
PROC: 0Y6Q0Z0 Detachment at Left 1st Toe, Complete, Open Approach (ICD-10-PCS; principal; 2020-02-22 07:30)
PROC: 5A1D70Z Performance of Urinary Filtration, Intermittent, Less than 6 Hours Per Day (ICD-10-PCS; 2020-02-23)
PROC: 5A1D70Z Performance of Urinary Filtration, Intermittent, Less than 6 Hours Per Day (ICD-10-PCS; 2020-02-25)
DX: A41.9 Sepsis, unspecified organism (principal); U07.1 COVID-19; J12.89 Other viral pneumonia; I21.4 Non-ST elevation (NSTEMI) myocardial infarction; N18.6 End stage renal disease; D61.818 Other pancytopenia; E87.1 Hypo-osmolality and hyponatremia; I13.11 Hypertensive heart and chronic kidney disease without heart failure, with stage 5 chronic kidney disease, or end stage renal disease; R18.8 Other ascites; L03.116 Cellulitis of left lower limb; I96 Gangrene, not elsewhere classified; E11.52 Type 2 diabetes mellitus with diabetic peripheral angiopathy with gangrene; M86.9 Osteomyelitis, unspecified; R65.20 Severe sepsis without septic shock; D64.9 Anemia, unspecified; K72.90 Hepatic failure, unspecified without coma; E11.22 Type 2 diabetes mellitus with diabetic chronic kidney disease; B19.20 Unspecified viral hepatitis C without hepatic coma; E11.69 Type 2 diabetes mellitus with other specified complication; K74.60 Unspecified cirrhosis of liver; L03.039 Cellulitis of unspecified toe; B35.3 Tinea pedis; E11.40 Type 2 diabetes mellitus with diabetic neuropathy, unspecified; D63.8 Anemia in other chronic diseases classified elsewhere; Z99.2 Dependence on renal dialysis; Z88.0 Allergy status to penicillin; Z99.3 Dependence on wheelchair; Z79.899 Other long term (current) drug therapy; Z79.1 Long term (current) use of non-steroidal anti-inflammatories (NSAID); Z79.82 Long term (current) use of aspirin; Z79.01 Long term (current) use of anticoagulants; Z79.4 Long term (current) use of insulin
CPT/HCPCS: 36600; 70450; 71250; 72192; 74150; 82270; 82728; 82805; 83605; 83615; 83735; 84100; 84145; 85379; 85651; 86140; 86850; 86900; 86901; 86923; 86927; 87040; 87070; 87081; 87177; 87205; 87340; 87804; 88305; 88311; 89055; 93005; 94761; 97110; 97116; 97162; 97530; 99291; G0378; J0456; J0690; J0696; J0885; J1100; J1170; J1815; J2250; J2704; J3010; J3370; J3490; J7030; J7040; J7050; J7060; P9016